=== PATIENT | male | born 1940 | race Caucasian/White ===

== ENCOUNTER → 2017-03-18 | Outpatient (CLI) | payer MEDICARE, OTHER ==
[~2017-03-18] MED LIST: /GLIP10TAB OR; /PANT40TA PO; /WARF5TA OR; ACET65TA OR; ALDA25TA2 OR; BISO10TA2 OR; BUSP10TA2 OR; CILOSTAZOL PO; CORE3.12 OR; DIET; FEBUXOSTAT PO; FLAG500T PO; FLEC50TA2 OR; FOLI1TAB OR; FOLLOW UP; GABA300T OR; HECTORAL OR; HUMUINJ IJ; HUMUINJ SQ; HUMUINJ SUBQ; HUMULIN R U SQ; INSULIN; ISOS30BRAN OR; KLOR10TA OR; LASI40TA OR; LEVEMIR INSULIN; LEVEMIR INSULIN SC; LIDOCAINE 1% MDV 20ML VIAL As Ordered ONE; LISI40TA OR; LOPERAMIDE PO; MILKSUS OR; MULTIVIT OR; NEUR600T OR; NF; NORV5TAB OR; NOVOLOG100 MG/ML SC; OXYC10TA97 OR; PERC5TAB8 OR; POTA20TA OR; RANI150C OR; RANI75TA2 OR; SING10TA31 OR; SPIR25TA2 OR; TAMB100T OR; TORS20TA2 OR; TRAM50TA2 OR; TRIC145T19 PO; ULORIC OR; XANA0.25 OR; ZOCO40TA OR; colcrys PO; dulcolax OR; levemir SC
--- NOTE | 2017-03-18 17:40 | REP ---
ULTRASOUND GUIDED RIGHT HIP ASPIRATION: The procedure was performed by RODOLFO Bedolla under the direct supervision of Dr. Coleman. The procedure along with its risks, benefits, and complications were discussed with the patient prior to the examination. Informed consent was obtained both verbally and written. The patient's was identified in the ultrasound suite and placed in a supine position. Ultrasound guidance was used to obtain and appropriate site for needle entry and this area was marked, prepped and draped in the usual sterile fashion. A procedural time-out was performed to ensure that the correct patient, site and procedure were being performed. Local infiltrative anesthesia was achieved using 1% Xylocaine. A 20-gauge spinal needle was advanced to the area of interest within the right hip. Aspirate of less than 1 mL was obtained from this procedure. A 10 mL saline lavage was attempted with no residual return of fluid. The fluid that was able to be obtained was placed in a sterile specimen cup and sent to the lab for further evaluation. Results pending. The patient tolerated the procedure well and had no immediate complications. IMPRESSION: Uncomplicated attempt at a right hip aspiration with ultrasound guidance. Reviewed by RODOLFO King 03/23/2017 11:12 AEdited and Signed by Richard Coleman MD 03/23/2017 11:41 A
[2017-03-18 18:43] LABS: SYNOVIAL FLUID COLOR RED (YELLOW)
[2017-03-18 18:44] LABS: CRYSTALS, BODY FLUID NONE SEEN (NONE SEEN); HCT SOURCE RIGHT HIP
== END ==
LOC: M RADPRO 14:35
PROVIDERS: ATTEND Orthopaedic Surgery
DX: M16.11 Unilateral primary osteoarthritis, right hip (principal); Z95.828 Presence of other vascular implants and grafts; I48.91 Unspecified atrial fibrillation; Z86.79 Personal history of other diseases of the circulatory system; Z95.0 Presence of cardiac pacemaker; Z96.651 Presence of right artificial knee joint; Z89.612 Acquired absence of left leg above knee; Z87.891 Personal history of nicotine dependence; Z88.8 Allergy status to other drugs, medicaments and biological substances; Z79.899 Other long term (current) drug therapy

== ENCOUNTER → 2017-06-12 | Outpatient (CLI) | payer MEDICARE, OTHER | LOC: M PAIN 13:15 | DX: M25.551 Pain in right hip (principal); G89.29 Other chronic pain; I10 Essential (primary) hypertension; E78.5 Hyperlipidemia, unspecified; Z79.899 Other long term (current) drug therapy; Z88.8 Allergy status to other drugs, medicaments and biological substances; Z95.0 Presence of cardiac pacemaker | CPT/HCPCS: G0463 ==

== ENCOUNTER → 2017-07-28 | Outpatient (CLI) | payer MEDICARE, OTHER | LOC: M PAIN 14:15 | DX: G89.29 Other chronic pain (principal); M25.551 Pain in right hip; I12.9 Hypertensive chronic kidney disease with stage 1 through stage 4 chronic kidney disease, or unspecified chronic kidney disease; E78.5 Hyperlipidemia, unspecified; E66.01 Morbid (severe) obesity due to excess calories; N18.9 Chronic kidney disease, unspecified; I25.10 Atherosclerotic heart disease of native coronary artery without angina pectoris; Z79.01 Long term (current) use of anticoagulants; Z79.891 Long term (current) use of opiate analgesic; Z79.4 Long term (current) use of insulin; Z96.653 Presence of artificial knee joint, bilateral; Z95.0 Presence of cardiac pacemaker; Z89.612 Acquired absence of left leg above knee; Z95.820 Peripheral vascular angioplasty status with implants and grafts; Z88.5 Allergy status to narcotic agent; Z68.41 Body mass index [BMI] 40.0-44.9, adult | CPT/HCPCS: G0463 ==

== ENCOUNTER → 2017-08-15 | Outpatient (REF) | payer MEDICARE, OTHER | LOC: SKLAB2 20:34 | DX: R19.7 Diarrhea, unspecified (principal) ==

== ENCOUNTER → 2017-08-17 | Outpatient (REF) ==
[2017-08-17 10:24] LABS: HEMATOCRIT 28.8 % (42.0-52.0); HEMOGLOBIN 8.5 g/dl (13.5-17.5); MEAN CORPUSCULAR HEMOGLOBIN 24.3 pg (27.0-33.0); MEAN CORPUSCULAR HGB CONC 29.5 g/dl (32.0-36.5); MEAN CORPUSCULAR VOLUME 82.3 fl (80.0-96.0); PLATELET COUNT, AUTOMATED 350 10^3/uL (150-450); RED CELL DISTRIBUTION WIDTH 18.2 % (11.5-14.5); WHITE BLOOD COUNT 11.4 10^3/uL (4.0-10.0)
[2017-08-17 10:59] LABS: ALBUMIN 2.5 GM/DL (3.2-5.2); ALBUMIN/GLOBULIN RATIO 0.61 (1.00-1.93); ALKALINE PHOSPHATASE 125 U/L (45-117); ALT/SGPT 23 U/L (12-78); ANION GAP 8 MEQ/L (8-16); AST/SGOT 36 U/L (7-37); BILIRUBIN,TOTAL 0.3 MG/DL (0.2-1.0); BLOOD UREA NITROGEN 70 MG/DL (7-18); CALCIUM LEVEL 8.3 MG/DL (8.8-10.2); CARBON DIOXIDE LEVEL 27 MEQ/L (21-32); CHLORIDE LEVEL 110 MEQ/L (98-107); CREATININE FOR GFR 2.55 MG/DL (0.70-1.30); GLOMERULAR FILTRATION RATE 26.4 (>42); GLUCOSE, FASTING 122 MG/DL (70-100); IRON (FE) 19 UG/DL (65-175); POTASSIUM SERUM 4.3 MEQ/L (3.5-5.1); SODIUM LEVEL 145 MEQ/L (136-145); TOTAL PROTEIN 6.6 GM/DL (6.4-8.2)
[2017-08-17 16:08] LABS: ESTIMATED AVERAGE GLUCOSE 137 MG/DL (60-110); HEMOGLOBIN A1c 6.4 %
== END ==
LOC: SKLAB2 08:37
DX: D64.9 Anemia, unspecified (principal); E11.9 Type 2 diabetes mellitus without complications; I10 Essential (primary) hypertension; L03.115 Cellulitis of right lower limb; Z79.899 Other long term (current) drug therapy

== ENCOUNTER → 2017-08-21 | Outpatient (REF) ==
[2017-08-21 08:45] LABS: ANION GAP 6 MEQ/L (8-16); BLOOD UREA NITROGEN 74 MG/DL (7-18); CALCIUM LEVEL 8.6 MG/DL (8.8-10.2); CARBON DIOXIDE LEVEL 26 MEQ/L (21-32); CHLORIDE LEVEL 106 MEQ/L (98-107); CREATININE FOR GFR 2.28 MG/DL (0.70-1.30); GLUCOSE, FASTING 56 MG/DL (70-100); NT-PRO BNP 5600 PG/ML (<125); SODIUM LEVEL 138 MEQ/L (136-145)
[2017-08-21 08:47] LABS: POTASSIUM SERUM 5.6 MEQ/L (3.5-5.1)
== END ==
LOC: SKLAB3 07:00
DX: I50.9 Heart failure, unspecified (principal)

== ENCOUNTER → 2017-08-22 | Outpatient (REF) | payer MEDICARE, OTHER ==
[2017-08-22 12:48] LABS: ANION GAP 11 MEQ/L (8-16); BLOOD UREA NITROGEN 84 MG/DL (7-18); CALCIUM LEVEL 8.5 MG/DL (8.8-10.2); CARBON DIOXIDE LEVEL 25 MEQ/L (21-32); CHLORIDE LEVEL 102 MEQ/L (98-107); CREATININE FOR GFR 2.31 MG/DL (0.70-1.30); GLOMERULAR FILTRATION RATE 29.6 (>42); GLUCOSE, FASTING 178 MG/DL (70-100); SODIUM LEVEL 138 MEQ/L (136-145)
[2017-08-22 12:51] LABS: POTASSIUM SERUM 5.6 MEQ/L (3.5-5.1)
== END ==
LOC: SKLAB3 09:59
DX: I50.9 Heart failure, unspecified (principal)
CPT/HCPCS: 80048

== ENCOUNTER → 2017-08-23 | Outpatient (REF) | payer MEDICARE, OTHER ==
[2017-08-23 11:56] LABS: ANION GAP 11 MEQ/L (8-16); BLOOD UREA NITROGEN 97 MG/DL (7-18); CALCIUM LEVEL 8.4 MG/DL (8.8-10.2); CARBON DIOXIDE LEVEL 25 MEQ/L (21-32); CHLORIDE LEVEL 101 MEQ/L (98-107); GLOMERULAR FILTRATION RATE 29.7 (>42); GLUCOSE, FASTING 178 MG/DL (70-100); SODIUM LEVEL 137 MEQ/L (136-145)
== END ==
LOC: M LAB 10:26
DX: I50.9 Heart failure, unspecified (principal)
CPT/HCPCS: 80048

== ENCOUNTER → 2017-08-24 | Outpatient (REF) ==
[2017-08-24 09:22] LABS: ALBUMIN 2.2 GM/DL (3.2-5.2); ANION GAP 9 MEQ/L (8-16); BLOOD UREA NITROGEN 98 MG/DL (7-18); CALCIUM LEVEL 8.8 MG/DL (8.8-10.2); CARBON DIOXIDE LEVEL 26 MEQ/L (21-32); CHLORIDE LEVEL 102 MEQ/L (98-107); CREATININE FOR GFR 2.11 MG/DL (0.70-1.30); GLOMERULAR FILTRATION RATE 32.8 (>42); GLUCOSE, FASTING 54 MG/DL (70-100); NT-PRO BNP 5372 PG/ML (<125); POTASSIUM SERUM 4.5 MEQ/L (3.5-5.1); SODIUM LEVEL 137 MEQ/L (136-145)
== END ==
LOC: SKLAB3 07:00
DX: N18.9 Chronic kidney disease, unspecified (principal)

== ENCOUNTER → 2017-08-25 | Outpatient (REF) ==
[2017-08-25 08:07] LABS: ANION GAP 9 MEQ/L (8-16); BLOOD UREA NITROGEN 95 MG/DL (7-18); CALCIUM LEVEL 8.7 MG/DL (8.8-10.2); CARBON DIOXIDE LEVEL 26 MEQ/L (21-32); CHLORIDE LEVEL 103 MEQ/L (98-107); CREATININE FOR GFR 2.12 MG/DL (0.70-1.30); GLOMERULAR FILTRATION RATE 32.7 (>42); GLUCOSE, FASTING 110 MG/DL (70-100); POTASSIUM SERUM 4.6 MEQ/L (3.5-5.1); SODIUM LEVEL 138 MEQ/L (136-145)
== END ==
LOC: SKLAB3 07:00
DX: E11.9 Type 2 diabetes mellitus without complications (principal)

== ENCOUNTER → 2017-08-28 | Outpatient (REF) ==
[2017-08-28 14:54] LABS: ANION GAP 9 MEQ/L (8-16); BLOOD UREA NITROGEN 117 MG/DL (7-18); CARBON DIOXIDE LEVEL 26 MEQ/L (21-32); CHLORIDE LEVEL 104 MEQ/L (98-107); CREATININE FOR GFR 2.21 MG/DL (0.70-1.30); GLOMERULAR FILTRATION RATE 31.1 (>42); GLUCOSE, FASTING 118 MG/DL (70-100); SODIUM LEVEL 139 MEQ/L (136-145)
== END ==
LOC: SKLAB3 07:08
DX: L03.90 Cellulitis, unspecified (principal)

== ENCOUNTER → 2017-08-31 | Outpatient (REF) | LOC: SKLAB3 10:58 | DX: R06.02 Shortness of breath (principal) ==

== ENCOUNTER → 2017-09-01 | Outpatient (CLI) | payer MEDICARE, OTHER | LOC: M ST 12:18 | DX: R13.12 Dysphagia, oropharyngeal phase (principal) | CPT/HCPCS: 74230 ==

== ENCOUNTER → 2017-09-04 | Outpatient (REF) ==
[2017-09-04 07:20] LABS: ALBUMIN 2.4 GM/DL (3.2-5.2); ANION GAP 7 MEQ/L (8-16); BLOOD UREA NITROGEN 113 MG/DL (7-18); CALCIUM LEVEL 8.8 MG/DL (8.8-10.2); CARBON DIOXIDE LEVEL 27 MEQ/L (21-32); CHLORIDE LEVEL 105 MEQ/L (98-107); CREATININE FOR GFR 2.25 MG/DL (0.70-1.30); GLOMERULAR FILTRATION RATE 30.5 (>42); GLUCOSE, FASTING 58 MG/DL (70-100); POTASSIUM SERUM 4.6 MEQ/L (3.5-5.1); SODIUM LEVEL 139 MEQ/L (136-145)
== END ==
LOC: SKLAB3 07:00
DX: E11.9 Type 2 diabetes mellitus without complications (principal)

== ENCOUNTER → 2017-09-07 | Outpatient (REF) ==
[2017-09-07 09:12] LABS: HEMATOCRIT 28.1 % (42.0-52.0); HEMOGLOBIN 8.3 g/dl (13.5-17.5); MEAN CORPUSCULAR HEMOGLOBIN 23.4 pg (27.0-33.0); MEAN CORPUSCULAR HGB CONC 29.5 g/dl (32.0-36.5); MEAN CORPUSCULAR VOLUME 79.4 fl (80.0-96.0); PLATELET COUNT, AUTOMATED 277 10^3/uL (150-450); RED BLOOD COUNT 3.54 10^6/uL (4.30-6.10); RED CELL DISTRIBUTION WIDTH 18.7 % (11.5-14.5)
[2017-09-07 09:38] LABS: ALBUMIN 2.4 GM/DL (3.2-5.2); ANION GAP 8 MEQ/L (8-16); BLOOD UREA NITROGEN 120 MG/DL (7-18); CALCIUM LEVEL 8.6 MG/DL (8.8-10.2); CARBON DIOXIDE LEVEL 27 MEQ/L (21-32); CHLORIDE LEVEL 103 MEQ/L (98-107); GLOMERULAR FILTRATION RATE 31.3 (>42); GLUCOSE, FASTING 117 MG/DL (70-100); PHOSPHORUS LEVEL 4.9 MG/DL (2.5-4.9); POTASSIUM SERUM 4.9 MEQ/L (3.5-5.1); SODIUM LEVEL 138 MEQ/L (136-145)
== END ==
LOC: SKLAB3 07:00
DX: E11.9 Type 2 diabetes mellitus without complications (principal); L03.90 Cellulitis, unspecified

== ENCOUNTER → 2017-09-14 | Outpatient (REF) ==
[2017-09-14 09:22] LABS: HEMATOCRIT 28.5 % (42.0-52.0); HEMOGLOBIN 8.3 g/dl (13.5-17.5); MEAN CORPUSCULAR HEMOGLOBIN 23.1 pg (27.0-33.0); MEAN CORPUSCULAR HGB CONC 29.1 g/dl (32.0-36.5); MEAN CORPUSCULAR VOLUME 79.4 fl (80.0-96.0); PLATELET COUNT, AUTOMATED 210 10^3/uL (150-450); RED BLOOD COUNT 3.59 10^6/uL (4.30-6.10); RED CELL DISTRIBUTION WIDTH 18.5 % (11.5-14.5)
[2017-09-14 09:43] LABS: ALBUMIN 2.7 GM/DL (3.2-5.2); ANION GAP 10 MEQ/L (8-16); BLOOD UREA NITROGEN 90 MG/DL (7-18); C REACTIVE PROTEIN QUANTITATIV 3.49 MG/DL (0.00-0.30); CALCIUM LEVEL 8.4 MG/DL (8.8-10.2); CARBON DIOXIDE LEVEL 30 MEQ/L (21-32); CHLORIDE LEVEL 100 MEQ/L (98-107); FERRITIN 35 NG/ML (26-388); GLUCOSE, FASTING 103 MG/DL (70-100); IRON (FE) 22 UG/DL (65-175); MAGNESIUM LEVEL 2.5 MG/DL (1.8-2.4); PHOSPHORUS LEVEL 4.9 MG/DL (2.5-4.9); POTASSIUM SERUM 4.2 MEQ/L (3.5-5.1); SODIUM LEVEL 140 MEQ/L (136-145); TOTAL IRON BINDING CAPACITY 316 UG/DL (250-450); URIC ACID 5.8 MG/DL (3.5-7.2)
[2017-09-14 09:55] LABS: ERYTHROCYTE SEDIMENTATION RATE > 140 mm/hr (0-20)
== END ==
LOC: SKLAB3 12:52
DX: N18.9 Chronic kidney disease, unspecified (principal); L03.90 Cellulitis, unspecified

== ENCOUNTER → 2017-09-24 | Outpatient (REF) ==
[2017-09-24 07:57] LABS: HEMATOCRIT 30.9 % (42.0-52.0); MEAN CORPUSCULAR HEMOGLOBIN 22.5 pg (27.0-33.0); MEAN CORPUSCULAR HGB CONC 29.1 g/dl (32.0-36.5); MEAN CORPUSCULAR VOLUME 77.3 fl (80.0-96.0); PLATELET COUNT, AUTOMATED 290 10^3/uL (150-450); RED CELL DISTRIBUTION WIDTH 17.9 % (11.5-14.5); WHITE BLOOD COUNT 5.9 10^3/uL (4.0-10.0)
[2017-09-24 08:37] LABS: ALBUMIN 2.8 GM/DL (3.2-5.2); ANION GAP 8 MEQ/L (8-16); BLOOD UREA NITROGEN 94 MG/DL (7-18); CALCIUM LEVEL 8.6 MG/DL (8.8-10.2); CARBON DIOXIDE LEVEL 35 MEQ/L (21-32); CHLORIDE LEVEL 94 MEQ/L (98-107); CREATININE FOR GFR 2.81 MG/DL (0.70-1.30); GLOMERULAR FILTRATION RATE 23.6 (>42); GLUCOSE, FASTING 89 MG/DL (70-100); PHOSPHORUS LEVEL 4.6 MG/DL (2.5-4.9); POTASSIUM SERUM 3.8 MEQ/L (3.5-5.1); SODIUM LEVEL 137 MEQ/L (136-145)
== END ==
LOC: SKLAB3 06:36
DX: E11.9 Type 2 diabetes mellitus without complications (principal); L03.90 Cellulitis, unspecified

== ENCOUNTER → 2017-09-29 | Outpatient (REF) | payer MEDICARE, OTHER | LOC: M LAB REF 10:44 | DX: E11.52 Type 2 diabetes mellitus with diabetic peripheral angiopathy with gangrene (principal); L97.514 Non-pressure chronic ulcer of other part of right foot with necrosis of bone; E11.621 Type 2 diabetes mellitus with foot ulcer ==

== ENCOUNTER 2017-10-02 15:12 | Inpatient (IN) | payer MEDICARE, OTHER ==
[2017-10-02] MEDS: PIPERACILLIN/TAZOBACTAM SOD 3.375 GM in D5W MINI-BAG PLUS 50 ML IV (17:28)
[2017-10-02 17:54] LABS: CK-MB VALUE MASS < 1.0 NG/ML (<3.6); CPK CREATINE PHOSPHOKINASE 19 U/L (39-308); MB/CK RELATIVE INDEX 5.26 (< OR =4); TROPONIN I < 0.02 NG/ML (< 0.10)
[2017-10-02] MEDS: SODIUM CHLORIDE 0.9% INJ 10 ML SYR IV (18:00)
[2017-10-02] MEDS ORDERED: DEXTROSE 50% 50 ML SYRINGE IV (18:15)
[2017-10-02] MEDS ORDERED: GLUCAGON FOR INJ 1 MG VIAL (J1610) SC (18:15)
[2017-10-02] MEDS ORDERED: GLUCOSE 4 GM CHEW TABLET PO (18:15)
[2017-10-02 18:22] LABS: ERYTHROCYTE SEDIMENTATION RATE 65 mm/hr (0-20)
[2017-10-02] MEDS: VANCOMYCIN HCL 1,000 MG, VIAL MATE ADAPTER 1 EACH in D5W 250 ML IV (18:34)
[2017-10-02] MEDS ORDERED: traMADol 50 MG TAB PO (19:00)
[2017-10-02] MEDS ORDERED: MECLIZINE 25 MG TABLET PO (19:00)
[2017-10-02] MEDS: SYMBICORT 160/4.5MCG INHALER 6GM INH (20:00)
[2017-10-02] MEDS: MAGNESIUM CHLORIDE 64 MG TABCR (SLO MAG) PO (21:00)
[2017-10-02] MEDS: LEVEMIR (INSULIN DETEMIR) 1 UNITS/0.01ML SC (21:00)
[2017-10-02] MEDS: HumaLOG INSULIN (NovoLOG) PER UNIT SC (21:00)
[2017-10-02 21:29] LABS: BEDSIDE GLUCOSE 98 MG/DL (83-110)
[2017-10-02] MEDS: DABIGATRAN ETEXILATE 75 MG CAP (PRADAXA) PO (21:45)
[2017-10-02] MEDS: GABAPENTIN 300 MG CAP PO (21:46)
[2017-10-02] MEDS: traZODone 50 MG TAB PO (21:46)
[2017-10-02] MEDS: MONTELUKAST 10 MG TAB PO (21:46)
[2017-10-02] MEDS: SIMVASTATIN 40 MG TAB PO (21:46)
[2017-10-02] MEDS: PANTOPRAZOLE 40MG TAB (PROTONIX) PO (21:46)
[2017-10-02] MEDS: METOPROLOL TART 50 MG TAB PO (21:46)
[2017-10-02] MEDS: CEFTAROLINE FOSAMIL 300 MG in D5W 50 ML IV (23:00)
[2017-10-02] MEDS: ALBUTEROL SULFATE 2.5 MG/0.5 ML INH NEB SOLN INH (23:30)
[2017-10-02] MEDS: BUDESONIDE 0.5 MG/2 ML INHALATION SUSPENSION INH (23:30)
[2017-10-03] MEDS: ONDANSETRON 4MG/2ML VIAL (J2405) IV (03:45)
[2017-10-03] MEDS: SODIUM CHLORIDE 0.9% INJ 10 ML SYR IV ×3 (03:46→18:31)
[2017-10-03 05:32] LABS: HEMATOCRIT 32.1 % (42.0-52.0); HEMOGLOBIN 9.5 g/dl (13.5-17.5); MEAN CORPUSCULAR HEMOGLOBIN 22.5 pg (27.0-33.0); MEAN CORPUSCULAR HGB CONC 29.6 g/dl (32.0-36.5); MEAN CORPUSCULAR VOLUME 76.1 fl (80.0-96.0); PLATELET COUNT, AUTOMATED 274 10^3/uL (150-450); RED BLOOD COUNT 4.22 10^6/uL (4.30-6.10); RED CELL DISTRIBUTION WIDTH 18.6 % (11.5-14.5); WHITE BLOOD COUNT 15.4 10^3/uL (4.0-10.0)
[2017-10-03 05:32] LABS: BEDSIDE GLUCOSE 82 MG/DL (83-110)
[2017-10-03 05:52] LABS: ERYTHROCYTE SEDIMENTATION RATE 87 mm/hr (0-20)
[2017-10-03 06:05] LABS: ALBUMIN 2.5 GM/DL (3.2-5.2); ALBUMIN/GLOBULIN RATIO 0.58 (1.00-1.93); ALKALINE PHOSPHATASE 83 U/L (45-117); ALT/SGPT 12 U/L (12-78); ANION GAP 7 MEQ/L (8-16); AST/SGOT 19 U/L (7-37); BILIRUBIN,TOTAL 0.3 MG/DL (0.2-1.0); BLOOD UREA NITROGEN 133 MG/DL (7-18); CALCIUM LEVEL 8.5 MG/DL (8.8-10.2); CARBON DIOXIDE LEVEL 31 MEQ/L (21-32); CHLORIDE LEVEL 97 MEQ/L (98-107); CREATININE FOR GFR 2.72 MG/DL (0.70-1.30); GLOMERULAR FILTRATION RATE 24.5 (>42); GLUCOSE, FASTING 86 MG/DL (70-100); MAGNESIUM LEVEL 2.2 MG/DL (1.8-2.4); POTASSIUM SERUM 3.8 MEQ/L (3.5-5.1); SODIUM LEVEL 135 MEQ/L (136-145); TOTAL PROTEIN 6.8 GM/DL (6.4-8.2)
[2017-10-03] MEDS: BUDESONIDE 0.5 MG/2 ML INHALATION SUSPENSION INH ×2 (06:58→20:00)
[2017-10-03] MEDS: ALBUTEROL SULFATE 2.5 MG/0.5 ML INH NEB SOLN INH (06:58)
[2017-10-03] MEDS: SYMBICORT 160/4.5MCG INHALER 6GM INH ×2 (06:59→20:00)
[2017-10-03] MEDS: HumaLOG INSULIN (NovoLOG) PER UNIT SC ×4 (07:23→21:41)
[2017-10-03] MEDS: LevoFLOXacin IV 250 MG in APPROPRIATE DILUENT 1 EA IV (09:00)
[2017-10-03] MEDS: SANTYL OINT 30GM TOP (09:00)
[2017-10-03] MEDS: MAGNESIUM CHLORIDE 64 MG TABCR (SLO MAG) PO ×2 (09:00→21:00)
[2017-10-03] MEDS: CLOPIDOGREL 75 MG TAB PO (09:11)
[2017-10-03] MEDS: GABAPENTIN 300 MG CAP PO ×2 (09:11→21:40)
[2017-10-03] MEDS: FINASTERIDE 5 MG TAB PO (09:12)
[2017-10-03] MEDS: DABIGATRAN ETEXILATE 75 MG CAP (PRADAXA) PO ×2 (09:12→21:40)
[2017-10-03] MEDS: SENOKOT S TAB PO (09:12)
[2017-10-03] MEDS: CALCITRIOL 0.25 MCG CAP (S0169) PO (09:12)
[2017-10-03] MEDS: DULoxetine 20 MG CAP (CYMBALTA) PO (09:12)
[2017-10-03] MEDS: MULTIVITAMINS/MINERALS THERAP 1 TAB PO (09:12)
[2017-10-03] MEDS: PANTOPRAZOLE 40MG TAB (PROTONIX) PO ×2 (09:12→21:39)
[2017-10-03] MEDS: METOPROLOL TART 50 MG TAB PO ×2 (09:12→21:40)
[2017-10-03] MEDS: FEBUXOSTAT 40 MG TABLET (ULORIC) PO (11:37)
[2017-10-03] MEDS: CEFTAROLINE FOSAMIL 300 MG in D5W 50 ML IV (11:37)
[2017-10-03 11:50] LABS: BEDSIDE GLUCOSE 117 MG/DL (83-110)
[2017-10-03 16:45] LABS: BEDSIDE GLUCOSE 184 MG/DL (83-110)
[2017-10-03 21:33] LABS: BEDSIDE GLUCOSE 179 MG/DL (83-110)
[2017-10-03] MEDS: MONTELUKAST 10 MG TAB PO (21:39)
[2017-10-03] MEDS: SIMVASTATIN 40 MG TAB PO (21:39)
[2017-10-03] MEDS: traZODone 50 MG TAB PO (21:40)
[2017-10-03] MEDS: LEVEMIR (INSULIN DETEMIR) 1 UNITS/0.01ML SC (21:41)
[2017-10-04] MEDS: CEFTAROLINE FOSAMIL 300 MG in D5W 50 ML IV ×3 (00:03→23:39)
[2017-10-04] MEDS: ONDANSETRON 4MG/2ML VIAL (J2405) IV ×3 (00:55→20:46)
[2017-10-04] MEDS: ALBUTEROL SULFATE 2.5 MG/0.5 ML INH NEB SOLN INH ×2 (01:28→07:56)
[2017-10-04] MEDS: SODIUM CHLORIDE 0.9% INJ 10 ML SYR IV ×2 (05:57→17:44)
[2017-10-04 06:13] LABS: HEMATOCRIT 32.9 % (42.0-52.0); HEMOGLOBIN 9.7 g/dl (13.5-17.5); MEAN CORPUSCULAR HEMOGLOBIN 22.6 pg (27.0-33.0); MEAN CORPUSCULAR HGB CONC 29.5 g/dl (32.0-36.5); MEAN CORPUSCULAR VOLUME 76.7 fl (80.0-96.0); PLATELET COUNT, AUTOMATED 276 10^3/uL (150-450); RED BLOOD COUNT 4.29 10^6/uL (4.30-6.10); RED CELL DISTRIBUTION WIDTH 19.3 % (11.5-14.5); WHITE BLOOD COUNT 14.8 10^3/uL (4.0-10.0)
[2017-10-04 06:56] LABS: ALBUMIN 2.5 GM/DL (3.2-5.2); ALBUMIN/GLOBULIN RATIO 0.54 (1.00-1.93); ALKALINE PHOSPHATASE 85 U/L (45-117); ALT/SGPT 10 U/L (12-78); ANION GAP 8 MEQ/L (8-16); AST/SGOT 15 U/L (7-37); BILIRUBIN,TOTAL 0.4 MG/DL (0.2-1.0); BLOOD UREA NITROGEN 137 MG/DL (7-18); CALCIUM LEVEL 8.9 MG/DL (8.8-10.2); CARBON DIOXIDE LEVEL 31 MEQ/L (21-32); CHLORIDE LEVEL 97 MEQ/L (98-107); GLOMERULAR FILTRATION RATE 21.9 (>42); GLUCOSE, FASTING 121 MG/DL (70-100); MAGNESIUM LEVEL 2.5 MG/DL (1.8-2.4); POTASSIUM SERUM 3.9 MEQ/L (3.5-5.1); SODIUM LEVEL 136 MEQ/L (136-145); TOTAL PROTEIN 7.1 GM/DL (6.4-8.2)
[2017-10-04 07:16] LABS: ERYTHROCYTE SEDIMENTATION RATE 84 mm/hr (0-20)
[2017-10-04] MEDS: HumaLOG INSULIN (NovoLOG) PER UNIT SC ×4 (07:30→20:45)
[2017-10-04] MEDS: BUDESONIDE 0.5 MG/2 ML INHALATION SUSPENSION INH ×2 (07:56→20:34)
[2017-10-04] MEDS: SYMBICORT 160/4.5MCG INHALER 6GM INH ×2 (08:00→20:00)
[2017-10-04] MEDS: NS 1,000 ML IV (08:37)
[2017-10-04] MEDS: CLOPIDOGREL 75 MG TAB PO (09:16)
[2017-10-04] MEDS: DULoxetine 20 MG CAP (CYMBALTA) PO (09:16)
[2017-10-04] MEDS: FINASTERIDE 5 MG TAB PO (09:16)
[2017-10-04] MEDS: METOPROLOL TART 50 MG TAB PO ×2 (09:16→20:46)
[2017-10-04] MEDS: DABIGATRAN ETEXILATE 75 MG CAP (PRADAXA) PO (09:16)
[2017-10-04] MEDS: GABAPENTIN 300 MG CAP PO ×2 (09:16→20:46)
[2017-10-04] MEDS: PANTOPRAZOLE 40MG TAB (PROTONIX) PO ×2 (09:17→20:47)
[2017-10-04] MEDS: FEBUXOSTAT 40 MG TABLET (ULORIC) PO (09:17)
[2017-10-04] MEDS: MULTIVITAMINS/MINERALS THERAP 1 TAB PO (09:17)
[2017-10-04] MEDS: MAGNESIUM CHLORIDE 64 MG TABCR (SLO MAG) PO (09:17)
[2017-10-04] MEDS: SENOKOT S TAB PO (09:17)
[2017-10-04] MEDS: CALCITRIOL 0.25 MCG CAP (S0169) PO (09:17)
[2017-10-04] MEDS: SANTYL OINT 30GM TOP (09:33)
[2017-10-04] MEDS: ACETAMINOPHEN TAB 650MG DOSE (2X325MG) PO ×2 (09:43→21:05)
[2017-10-04 11:56] LABS: BEDSIDE GLUCOSE 159 MG/DL (83-110)
[2017-10-04 13:57] LABS: OSMOLALITY URINE 402 MOSM/KG (500-800)
[2017-10-04 14:04] LABS: CHLORIDE,RANDOM URINE < 10 MEQ/L; CREATININE,RANDOM URINE 80.5 MG/DL; SODIUM,RANDOM URINE 22 MEQ/L; TOTAL PROTEIN,RANDOM URINE 76.5 MG/DL (0.0-12.0)
[2017-10-04 16:47] LABS: PARTIAL THROMBOPLASTIN TIME 53.6 SECONDS (26.8-37.9)
[2017-10-04] MEDS: HEPARIN DRIP 25,000 UNITS in APPROPRIATE DILUENT 1 EA IV (16:57)
[2017-10-04 20:39] LABS: BEDSIDE GLUCOSE 151 MG/DL (83-110)
[2017-10-04] MEDS: LEVEMIR (INSULIN DETEMIR) 1 UNITS/0.01ML SC (20:45)
[2017-10-04] MEDS: MONTELUKAST 10 MG TAB PO (20:47)
[2017-10-04] MEDS: traZODone 50 MG TAB PO (20:47)
[2017-10-04] MEDS: SIMVASTATIN 40 MG TAB PO (20:47)
[2017-10-05 01:00] LABS: PARTIAL THROMBOPLASTIN TIME 145.3 SECONDS (26.8-37.9)
[2017-10-05] MEDS: HEPARIN DRIP 25,000 UNITS in APPROPRIATE DILUENT 1 EA IV ×2 (02:06→11:59)
[2017-10-05] MEDS: SODIUM CHLORIDE 0.9% INJ 10 ML SYR IV ×2 (04:45→17:54)
[2017-10-05] MEDS: ONDANSETRON 4MG/2ML VIAL (J2405) IV ×2 (05:00→20:59)
[2017-10-05 05:01] LABS: HEMATOCRIT 31.9 % (42.0-52.0); HEMOGLOBIN 9.2 g/dl (13.5-17.5); MEAN CORPUSCULAR HEMOGLOBIN 22.3 pg (27.0-33.0); MEAN CORPUSCULAR HGB CONC 28.8 g/dl (32.0-36.5); MEAN CORPUSCULAR VOLUME 77.2 fl (80.0-96.0); PLATELET COUNT, AUTOMATED 233 10^3/uL (150-450); RED BLOOD COUNT 4.13 10^6/uL (4.30-6.10); RED CELL DISTRIBUTION WIDTH 19.8 % (11.5-14.5); WHITE BLOOD COUNT 12.8 10^3/uL (4.0-10.0)
[2017-10-05 05:24] LABS: ALBUMIN 2.4 GM/DL (3.2-5.2); ALBUMIN/GLOBULIN RATIO 0.48 (1.00-1.93); ALKALINE PHOSPHATASE 77 U/L (45-117); ALT/SGPT 10 U/L (12-78); ANION GAP 6 MEQ/L (8-16); AST/SGOT 12 U/L (7-37); BILIRUBIN,TOTAL 0.3 MG/DL (0.2-1.0); BLOOD UREA NITROGEN 124 MG/DL (7-18); CALCIUM LEVEL 9.4 MG/DL (8.8-10.2); CARBON DIOXIDE LEVEL 31 MEQ/L (21-32); CHLORIDE LEVEL 100 MEQ/L (98-107); CREATININE FOR GFR 2.94 MG/DL (0.70-1.30); GLOMERULAR FILTRATION RATE 22.4 (>42); GLUCOSE, FASTING 101 MG/DL (70-100); MAGNESIUM LEVEL 2.4 MG/DL (1.8-2.4); POTASSIUM SERUM 3.9 MEQ/L (3.5-5.1); SODIUM LEVEL 137 MEQ/L (136-145); TOTAL PROTEIN 7.4 GM/DL (6.4-8.2)
[2017-10-05 05:40] LABS: ERYTHROCYTE SEDIMENTATION RATE 91 mm/hr (0-20)
[2017-10-05 08:20] LABS: PARTIAL THROMBOPLASTIN TIME 104.6 SECONDS (26.8-37.9)
[2017-10-05] MEDS: BUDESONIDE 0.5 MG/2 ML INHALATION SUSPENSION INH ×2 (08:32→19:55)
[2017-10-05] MEDS: SYMBICORT 160/4.5MCG INHALER 6GM INH ×2 (08:32→19:56)
[2017-10-05] MEDS ORDERED: LIDOCAINE 2% MDV 20 ML VIAL As Ordered (10:12)
[2017-10-05] MEDS ORDERED: HEPARIN 1,000 UNITS/ML 10ML VIAL (FOR RADIOLOGY& DIALYSIS ONLY) As Ordered (10:12)
[2017-10-05] MEDS: NS 1,000 ML IV ×2 (11:44→20:59)
[2017-10-05] MEDS: HumaLOG INSULIN (NovoLOG) PER UNIT SC ×4 (11:45→21:00)
[2017-10-05] MEDS: FEBUXOSTAT 40 MG TABLET (ULORIC) PO (11:46)
[2017-10-05] MEDS: FINASTERIDE 5 MG TAB PO (11:46)
[2017-10-05] MEDS: CALCITRIOL 0.25 MCG CAP (S0169) PO (11:46)
[2017-10-05] MEDS: SENOKOT S TAB PO (11:46)
[2017-10-05] MEDS: MULTIVITAMINS/MINERALS THERAP 1 TAB PO (11:46)
[2017-10-05] MEDS: DULoxetine 20 MG CAP (CYMBALTA) PO (11:47)
[2017-10-05] MEDS: METOPROLOL TART 50 MG TAB PO ×2 (11:47→21:00)
[2017-10-05] MEDS: PANTOPRAZOLE 40MG TAB (PROTONIX) PO ×2 (11:47→21:00)
[2017-10-05] MEDS: CLOPIDOGREL 75 MG TAB PO (11:47)
[2017-10-05] MEDS: CEFTAROLINE FOSAMIL 300 MG in D5W 50 ML IV (11:48)
[2017-10-05] MEDS: SANTYL OINT 30GM TOP (11:48)
[2017-10-05] MEDS: GABAPENTIN 300 MG CAP PO (11:56)
[2017-10-05 14:46] LABS: PARTIAL THROMBOPLASTIN TIME 87.5 SECONDS (26.8-37.9)
[2017-10-05 17:29] LABS: BEDSIDE GLUCOSE 124 MG/DL (83-110)
[2017-10-05] MEDS: SIMVASTATIN 40 MG TAB PO (20:59)
[2017-10-05] MEDS: traZODone 50 MG TAB PO (20:59)
[2017-10-05 21:00] LABS: BEDSIDE GLUCOSE 131 MG/DL (83-110)
[2017-10-05] MEDS: MONTELUKAST 10 MG TAB PO (21:00)
[2017-10-05] MEDS: LEVEMIR (INSULIN DETEMIR) 1 UNITS/0.01ML SC (21:01)
[2017-10-05] MEDS: ACETAMINOPHEN TAB 650MG DOSE (2X325MG) PO (21:06)
[2017-10-05] MEDS: PIPERACILLIN/TAZOBACTAM SOD 2.25 GM in D5W MINI-BAG PLUS 50 ML IV (21:07)
[2017-10-05 22:57] LABS: ANION GAP 9 MEQ/L (8-16); BLOOD UREA NITROGEN 66 MG/DL (7-18); CALCIUM LEVEL 8.6 MG/DL (8.8-10.2); CARBON DIOXIDE LEVEL 29 MEQ/L (21-32); CHLORIDE LEVEL 102 MEQ/L (98-107); CREATININE FOR GFR 2.26 MG/DL (0.70-1.30); GLOMERULAR FILTRATION RATE 30.3 (>42); GLUCOSE, FASTING 131 MG/DL (70-100); MAGNESIUM LEVEL 2.3 MG/DL (1.8-2.4); POTASSIUM SERUM 4.1 MEQ/L (3.5-5.1); SODIUM LEVEL 140 MEQ/L (136-145)
[2017-10-06] MEDS: HALOPERIDOL 5 MG/ML VIAL (J1630) IV (02:29)
[2017-10-06] MEDS: PIPERACILLIN/TAZOBACTAM SOD 2.25 GM in D5W MINI-BAG PLUS 50 ML IV ×3 (05:01→21:37)
[2017-10-06] MEDS: SODIUM CHLORIDE 0.9% INJ 10 ML SYR IV ×2 (05:32→19:02)
[2017-10-06 05:46] LABS: HEMOGLOBIN 8.2 g/dl (13.5-17.5); MEAN CORPUSCULAR HGB CONC 29.3 g/dl (32.0-36.5); MEAN CORPUSCULAR VOLUME 78.7 fl (80.0-96.0); PLATELET COUNT, AUTOMATED 188 10^3/uL (150-450); RED BLOOD COUNT 3.56 10^6/uL (4.30-6.10); RED CELL DISTRIBUTION WIDTH 19.9 % (11.5-14.5); WHITE BLOOD COUNT 10.9 10^3/uL (4.0-10.0)
[2017-10-06 06:03] LABS: PARTIAL THROMBOPLASTIN TIME 92.3 SECONDS (26.8-37.9)
[2017-10-06 06:09] LABS: ERYTHROCYTE SEDIMENTATION RATE 51 mm/hr (0-20)
[2017-10-06 06:52] LABS: ALBUMIN 2.2 GM/DL (3.2-5.2); ALBUMIN/GLOBULIN RATIO 0.58 (1.00-1.93); ALKALINE PHOSPHATASE 70 U/L (45-117); ALT/SGPT 9 U/L (12-78); ANION GAP 8 MEQ/L (8-16); AST/SGOT 16 U/L (7-37); BILIRUBIN,TOTAL 0.3 MG/DL (0.2-1.0); BLOOD UREA NITROGEN 69 MG/DL (7-18); C REACTIVE PROTEIN QUANTITATIV 6.71 MG/DL (0.00-0.30); CALCIUM LEVEL 8.2 MG/DL (8.8-10.2); CARBON DIOXIDE LEVEL 28 MEQ/L (21-32); CHLORIDE LEVEL 106 MEQ/L (98-107); CREATININE FOR GFR 2.36 MG/DL (0.70-1.30); GLOMERULAR FILTRATION RATE 28.9 (>42); GLUCOSE, FASTING 69 MG/DL (70-100); MAGNESIUM LEVEL 2.3 MG/DL (1.8-2.4); POTASSIUM SERUM 3.7 MEQ/L (3.5-5.1); SODIUM LEVEL 142 MEQ/L (136-145)
[2017-10-06] MEDS: BUDESONIDE 0.5 MG/2 ML INHALATION SUSPENSION INH ×2 (07:26→21:19)
[2017-10-06] MEDS: SYMBICORT 160/4.5MCG INHALER 6GM INH ×2 (07:27→21:20)
[2017-10-06] MEDS: METOPROLOL TART 50 MG TAB PO ×2 (07:34→21:41)
[2017-10-06] MEDS: CALCITRIOL 0.25 MCG CAP (S0169) PO (07:34)
[2017-10-06] MEDS: FEBUXOSTAT 40 MG TABLET (ULORIC) PO (07:34)
[2017-10-06] MEDS: PANTOPRAZOLE 40MG TAB (PROTONIX) PO ×3 (07:34→21:41)
[2017-10-06] MEDS: SENOKOT S TAB PO (07:34)
[2017-10-06] MEDS: HumaLOG INSULIN (NovoLOG) PER UNIT SC ×4 (07:35→21:00)
[2017-10-06] MEDS: DULoxetine 20 MG CAP (CYMBALTA) PO (07:35)
[2017-10-06] MEDS: MULTIVITAMINS/MINERALS THERAP 1 TAB PO (07:35)
[2017-10-06] MEDS: FINASTERIDE 5 MG TAB PO (07:35)
[2017-10-06] MEDS: CLOPIDOGREL 75 MG TAB PO (07:35)
[2017-10-06] MEDS: NS 1,000 ML IV ×3 (07:36→23:37)
[2017-10-06] MEDS: SANTYL OINT 30GM TOP (07:36)
[2017-10-06] MEDS: LORazepam 2 MG/ML VIAL (J2060) IV ×3 (08:47→19:46)
[2017-10-06 11:36] LABS: CHOLESTEROL LEVEL 79 MG/DL (<200); CHOLESTEROL RISK RATIO 2.468 (<5); HDL CHOLESTEROL 32 MG/DL (>40); LDL CHOLESTEROL 20.6 MG/DL (<100); NON-HDL-C 47 MG/DL; TRIGLYCERIDES LEVEL 132 MG/DL (<150)
[2017-10-06 11:55] LABS: ESTIMATED AVERAGE GLUCOSE 120 MG/DL (60-110); HEMOGLOBIN A1c 5.8 %
[2017-10-06 12:18] LABS: BEDSIDE GLUCOSE 63 MG/DL (83-110)
[2017-10-06] MEDS: HEPARIN DRIP 25,000 UNITS in APPROPRIATE DILUENT 1 EA IV (13:50)
[2017-10-06 17:29] LABS: BEDSIDE GLUCOSE 84 MG/DL (83-110)
[2017-10-06] MEDS: SIMVASTATIN 40 MG TAB PO ×2 (21:00→21:41)
[2017-10-06] MEDS: LEVEMIR (INSULIN DETEMIR) 1 UNITS/0.01ML SC (21:00)
[2017-10-06] MEDS: traZODone 50 MG TAB PO ×2 (21:00→21:41)
[2017-10-06] MEDS: MONTELUKAST 10 MG TAB PO ×2 (21:00→21:41)
[2017-10-06] MEDS ORDERED: LEVEMIR (INSULIN DETEMIR) 1 UNITS/0.01ML SC (21:00)
[2017-10-06 21:09] LABS: BEDSIDE GLUCOSE 123 MG/DL (83-110)
[2017-10-07] MEDS: PIPERACILLIN/TAZOBACTAM SOD 2.25 GM in D5W MINI-BAG PLUS 50 ML IV ×3 (05:20→20:30)
[2017-10-07] MEDS: SODIUM CHLORIDE 0.9% INJ 10 ML SYR IV ×2 (05:45→17:59)
[2017-10-07 05:47] LABS: HEMATOCRIT 30.1 % (42.0-52.0); HEMOGLOBIN 8.4 g/dl (13.5-17.5); MEAN CORPUSCULAR HEMOGLOBIN 22.4 pg (27.0-33.0); MEAN CORPUSCULAR HGB CONC 27.9 g/dl (32.0-36.5); MEAN CORPUSCULAR VOLUME 80.3 fl (80.0-96.0); PLATELET COUNT, AUTOMATED 197 10^3/uL (150-450); RED BLOOD COUNT 3.75 10^6/uL (4.30-6.10); RED CELL DISTRIBUTION WIDTH 20.2 % (11.5-14.5); WHITE BLOOD COUNT 13.1 10^3/uL (4.0-10.0)
[2017-10-07 06:02] LABS: PARTIAL THROMBOPLASTIN TIME 71.5 SECONDS (26.8-37.9)
[2017-10-07 06:19] LABS: ALBUMIN 2.3 GM/DL (3.2-5.2); ALBUMIN/GLOBULIN RATIO 0.58 (1.00-1.93); ALKALINE PHOSPHATASE 74 U/L (45-117); ALT/SGPT 10 U/L (12-78); ANION GAP 12 MEQ/L (8-16); AST/SGOT 15 U/L (7-37); BILIRUBIN,TOTAL 0.4 MG/DL (0.2-1.0); BLOOD UREA NITROGEN 62 MG/DL (7-18); C REACTIVE PROTEIN QUANTITATIV 8.84 MG/DL (0.00-0.30); CALCIUM LEVEL 8.2 MG/DL (8.8-10.2); CARBON DIOXIDE LEVEL 24 MEQ/L (21-32); CHLORIDE LEVEL 108 MEQ/L (98-107); CREATININE FOR GFR 2.54 MG/DL (0.70-1.30); FERRITIN 501 NG/ML (26-388); GLOMERULAR FILTRATION RATE 26.5 (>42); GLUCOSE, FASTING 110 MG/DL (70-100); IRON (FE) 32 UG/DL (65-175); PERCENT SATURATION 13.9 % (19.7-50.0); POTASSIUM SERUM 3.9 MEQ/L (3.5-5.1); SODIUM LEVEL 144 MEQ/L (136-145); TOTAL IRON BINDING CAPACITY 231 UG/DL (250-450); TOTAL PROTEIN 6.3 GM/DL (6.4-8.2)
[2017-10-07 07:02] LABS: ERYTHROCYTE SEDIMENTATION RATE 85 mm/hr (0-20)
[2017-10-07] MEDS: HumaLOG INSULIN (NovoLOG) PER UNIT SC ×4 (07:30→21:00)
[2017-10-07] MEDS: BUDESONIDE 0.5 MG/2 ML INHALATION SUSPENSION INH ×2 (07:34→20:32)
[2017-10-07] MEDS: SYMBICORT 160/4.5MCG INHALER 6GM INH ×2 (07:35→20:00)
[2017-10-07 08:10] LABS: HEPATITIS B CORE ANTIBODY IGG Negative (Negative)
[2017-10-07] MEDS: FINASTERIDE 5 MG TAB PO (08:27)
[2017-10-07] MEDS: SENOKOT S TAB PO (08:27)
[2017-10-07] MEDS: DULoxetine 20 MG CAP (CYMBALTA) PO (08:27)
[2017-10-07] MEDS: PANTOPRAZOLE 40MG TAB (PROTONIX) PO ×2 (08:27→21:00)
[2017-10-07] MEDS: METOPROLOL TART 50 MG TAB PO (08:27)
[2017-10-07] MEDS: CALCITRIOL 0.25 MCG CAP (S0169) PO (08:27)
[2017-10-07] MEDS: CLOPIDOGREL 75 MG TAB PO (08:27)
[2017-10-07] MEDS: FEBUXOSTAT 40 MG TABLET (ULORIC) PO (08:28)
[2017-10-07] MEDS: MULTIVITAMINS/MINERALS THERAP 1 TAB PO (08:28)
[2017-10-07] MEDS: LORazepam 2 MG/ML VIAL (J2060) IV ×4 (08:35→20:28)
[2017-10-07 08:46] LABS: HEPATITIS B SURFACE ANTIBODY NEGATIVE (POSITIVE)
[2017-10-07 08:48] LABS: HEPATITIS B SURFACE ANTIGEN NEGATIVE (NEGATIVE)
[2017-10-07 09:10] LABS: HEPATITIS B CORE ANTIBODY IGM NEGATIVE (NEGATIVE)
[2017-10-07] MEDS ORDERED: LORazepam 2 MG/ML VIAL (J2060) As Ordered (10:31)
[2017-10-07] MEDS: HEPARIN 1,000 UNITS/ML 10ML VIAL (FOR RADIOLOGY& DIALYSIS ONLY) XX (11:15)
[2017-10-07 12:38] LABS: BEDSIDE GLUCOSE 126 MG/DL (83-110)
[2017-10-07] MEDS: HEPARIN DRIP 25,000 UNITS in APPROPRIATE DILUENT 1 EA IV (13:26)
[2017-10-07] MEDS: LABETALOL HCL 100 MG/20 ML VIAL IV ×2 (13:27→17:58)
[2017-10-07] MEDS: SANTYL OINT 30GM TOP (13:28)
[2017-10-07 17:01] LABS: BEDSIDE GLUCOSE 111 MG/DL (83-110)
[2017-10-07] MEDS ORDERED: MIDAZOLAM INJ 2 MG/2 ML VIAL (J2250) As Ordered (18:13)
[2017-10-07] MEDS: ALBUTEROL SULFATE 2.5 MG/0.5 ML INH NEB SOLN INH (20:32)
[2017-10-07] MEDS: LEVEMIR (INSULIN DETEMIR) 1 UNITS/0.01ML SC (21:00)
[2017-10-07] MEDS: traZODone 50 MG TAB PO (21:00)
[2017-10-07] MEDS: SIMVASTATIN 40 MG TAB PO (21:00)
[2017-10-07] MEDS: MONTELUKAST 10 MG TAB PO (21:00)
[2017-10-07 21:38] LABS: BEDSIDE GLUCOSE 142 MG/DL (83-110)
[2017-10-08] MEDS: NS 1,000 ML IV (00:13)
[2017-10-08] MEDS: LORazepam 2 MG/ML VIAL (J2060) IV ×2 (00:18→23:33)
[2017-10-08] MEDS: LABETALOL HCL 100 MG/20 ML VIAL IV ×5 (00:27→23:33)
[2017-10-08] MEDS: PIPERACILLIN/TAZOBACTAM SOD 2.25 GM in D5W MINI-BAG PLUS 50 ML IV ×2 (04:36→12:28)
[2017-10-08] MEDS: SODIUM CHLORIDE 0.9% INJ 10 ML SYR IV ×2 (05:21→18:00)
[2017-10-08 06:35] LABS: HEMATOCRIT 30.1 % (42.0-52.0); HEMOGLOBIN 8.7 g/dl (13.5-17.5); MEAN CORPUSCULAR HEMOGLOBIN 23.1 pg (27.0-33.0); MEAN CORPUSCULAR HGB CONC 28.9 g/dl (32.0-36.5); MEAN CORPUSCULAR VOLUME 79.8 fl (80.0-96.0); PLATELET COUNT, AUTOMATED 188 10^3/uL (150-450); RED BLOOD COUNT 3.77 10^6/uL (4.30-6.10); RED CELL DISTRIBUTION WIDTH 20.4 % (11.5-14.5); WHITE BLOOD COUNT 13.5 10^3/uL (4.0-10.0)
[2017-10-08 06:58] LABS: ERYTHROCYTE SEDIMENTATION RATE 85 mm/hr (0-20)
[2017-10-08 07:01] LABS: ANION GAP 9 MEQ/L (8-16); BLOOD UREA NITROGEN 34 MG/DL (7-18); CARBON DIOXIDE LEVEL 27 MEQ/L (21-32); CHLORIDE LEVEL 107 MEQ/L (98-107); CREATININE FOR GFR 2.03 MG/DL (0.70-1.30); GLOMERULAR FILTRATION RATE 34.3 (>42); GLUCOSE, FASTING 170 MG/DL (70-100); MAGNESIUM LEVEL 2.2 MG/DL (1.8-2.4); POTASSIUM SERUM 3.6 MEQ/L (3.5-5.1); SODIUM LEVEL 143 MEQ/L (136-145)
[2017-10-08 07:03] LABS: PARTIAL THROMBOPLASTIN TIME 239.4 SECONDS (26.8-37.9)
[2017-10-08 07:55] LABS: PARTIAL THROMBOPLASTIN TIME 56.7 SECONDS (26.8-37.9)
[2017-10-08] MEDS: SYMBICORT 160/4.5MCG INHALER 6GM INH ×2 (08:00→20:00)
[2017-10-08] MEDS: BUDESONIDE 0.5 MG/2 ML INHALATION SUSPENSION INH ×2 (08:00→20:00)
[2017-10-08] MEDS: HEPARIN SOD (PORCINE) 5000 UNITS/ML VIAL IV (08:39)
[2017-10-08 08:40] LABS: BEDSIDE GLUCOSE 125 MG/DL (83-110)
[2017-10-08] MEDS: FINASTERIDE 5 MG TAB PO (09:00)
[2017-10-08] MEDS: PANTOPRAZOLE 40MG TAB (PROTONIX) PO (09:00)
[2017-10-08] MEDS: SANTYL OINT 30GM TOP (09:00)
[2017-10-08] MEDS: CALCITRIOL 0.25 MCG CAP (S0169) PO (09:00)
[2017-10-08] MEDS: DULoxetine 20 MG CAP (CYMBALTA) PO (09:00)
[2017-10-08] MEDS: CLOPIDOGREL 75 MG TAB PO (09:00)
[2017-10-08] MEDS: SENOKOT S TAB PO (09:00)
[2017-10-08] MEDS: FEBUXOSTAT 40 MG TABLET (ULORIC) PO (09:00)
[2017-10-08] MEDS: MULTIVITAMINS/MINERALS THERAP 1 TAB PO (09:00)
[2017-10-08] MEDS: HumaLOG INSULIN (NovoLOG) PER UNIT SC ×4 (09:34→22:00)
[2017-10-08] MEDS: ACETAMINOPHEN 650 MG SUPP PR (12:29)
[2017-10-08 15:27] LABS: PARTIAL THROMBOPLASTIN TIME 67.3 SECONDS (26.8-37.9)
[2017-10-08] MEDS: HEPARIN DRIP 25,000 UNITS in APPROPRIATE DILUENT 1 EA IV (15:45)
[2017-10-08 18:28] LABS: BEDSIDE GLUCOSE 115 MG/DL (83-110)
[2017-10-08] MEDS ORDERED: PROPOFOL 200 MG/20 ML VIAL As Ordered (20:38)
[2017-10-08] MEDS ORDERED: fentaNYL 100 MCG/2 ML INJECTION (J3010) As Ordered (20:38)
[2017-10-08] MEDS ORDERED: LIDOCAINE 2% INJ 100 MG/5 ML SDV (FOR ANES.) As Ordered (21:41)
[2017-10-08] MEDS ORDERED: KETAMINE HCL 200 MG/20 ML VIAL As Ordered (21:42)
[2017-10-08] MEDS ORDERED: MIDAZOLAM INJ 2 MG/2 ML VIAL (J2250) As Ordered (21:44)
[2017-10-08] MEDS: LEVEMIR (INSULIN DETEMIR) 1 UNITS/0.01ML SC (22:00)
[2017-10-08 22:19] LABS: BEDSIDE GLUCOSE 131 MG/DL (83-110)
[2017-10-08] MEDS ORDERED: PERCOCET 5MG/325MG TAB PO (22:45)
[2017-10-08] MEDS ORDERED: ONDANSETRON 4MG/2ML VIAL (J2405) IV (22:45)
[2017-10-08] MEDS ORDERED: fentaNYL 100 MCG/2 ML INJECTION (J3010) IV (22:45)
[2017-10-08] MEDS: LR 1,000 ML IV (22:45)
[2017-10-08] MEDS: traZODone 50 MG TAB PO (23:33)
[2017-10-08 23:58] LABS: PARTIAL THROMBOPLASTIN TIME 77.9 SECONDS (26.8-37.9)
[2017-10-09] MEDS: SIMVASTATIN 40 MG TAB PO ×3 (00:51→07:04)
[2017-10-09] MEDS: PIPERACILLIN/TAZOBACTAM SOD 2.25 GM in D5W MINI-BAG PLUS 50 ML IV ×4 (00:51→21:22)
[2017-10-09] MEDS: MONTELUKAST 10 MG TAB PO ×3 (00:51→07:04)
[2017-10-09] MEDS: PANTOPRAZOLE 40MG TAB (PROTONIX) PO ×3 (00:51→21:00)
[2017-10-09] MEDS: NS 1,000 ML IV (00:52)
[2017-10-09] MEDS: ACETAMINOPHEN 650 MG SUPP PR ×2 (01:55→08:22)
[2017-10-09] MEDS: LORazepam 2 MG/ML VIAL (J2060) IV ×2 (05:20→09:57)
[2017-10-09] MEDS: LABETALOL HCL 100 MG/20 ML VIAL IV ×3 (05:22→18:49)
[2017-10-09] MEDS: SODIUM CHLORIDE 0.9% INJ 10 ML SYR IV ×2 (05:31→17:13)
[2017-10-09 05:42] LABS: ERYTHROCYTE SEDIMENTATION RATE 103 mm/hr (0-20)
[2017-10-09 06:05] LABS: HEMATOCRIT 29.3 % (42.0-52.0); HEMOGLOBIN 8.2 g/dl (13.5-17.5); MEAN CORPUSCULAR HEMOGLOBIN 22.5 pg (27.0-33.0); MEAN CORPUSCULAR VOLUME 80.5 fl (80.0-96.0); PLATELET COUNT, AUTOMATED 176 10^3/uL (150-450); RED BLOOD COUNT 3.64 10^6/uL (4.30-6.10); RED CELL DISTRIBUTION WIDTH 21.1 % (11.5-14.5); WHITE BLOOD COUNT 9.6 10^3/uL (4.0-10.0)
[2017-10-09 06:23] LABS: PARTIAL THROMBOPLASTIN TIME 60.5 SECONDS (26.8-37.9)
[2017-10-09 06:34] LABS: ALBUMIN 2.3 GM/DL (3.2-5.2); ALBUMIN/GLOBULIN RATIO 0.59 (1.00-1.93); ALKALINE PHOSPHATASE 73 U/L (45-117); ALT/SGPT 12 U/L (12-78); ANION GAP 14 MEQ/L (8-16); AST/SGOT 22 U/L (7-37); BILIRUBIN,TOTAL 0.5 MG/DL (0.2-1.0); BLOOD UREA NITROGEN 32 MG/DL (7-18); CALCIUM LEVEL 8.4 MG/DL (8.8-10.2); CARBON DIOXIDE LEVEL 23 MEQ/L (21-32); CHLORIDE LEVEL 114 MEQ/L (98-107); CREATININE FOR GFR 1.91 MG/DL (0.70-1.30); GLOMERULAR FILTRATION RATE 36.9 (>42); GLUCOSE, FASTING 110 MG/DL (70-100); MAGNESIUM LEVEL 2.1 MG/DL (1.8-2.4); POTASSIUM SERUM 3.7 MEQ/L (3.5-5.1); SODIUM LEVEL 151 MEQ/L (136-145); TOTAL PROTEIN 6.2 GM/DL (6.4-8.2)
[2017-10-09 07:06] LABS: C REACTIVE PROTEIN QUANTITATIV 9.53 MG/DL (0.00-0.30)
[2017-10-09] MEDS ORDERED: D5W 1,000 ML IV (07:15)
[2017-10-09] MEDS: BUDESONIDE 0.5 MG/2 ML INHALATION SUSPENSION INH ×2 (07:22→19:49)
[2017-10-09] MEDS: SYMBICORT 160/4.5MCG INHALER 6GM INH ×2 (07:22→19:49)
[2017-10-09] MEDS: HumaLOG INSULIN (NovoLOG) PER UNIT SC ×4 (07:30→21:00)
[2017-10-09] MEDS: MULTIVITAMINS/MINERALS THERAP 1 TAB PO (09:00)
[2017-10-09] MEDS: CLOPIDOGREL 75 MG TAB PO (09:00)
[2017-10-09] MEDS: FINASTERIDE 5 MG TAB PO (09:00)
[2017-10-09] MEDS: SENOKOT S TAB PO (09:00)
[2017-10-09] MEDS: SANTYL OINT 30GM TOP (09:00)
[2017-10-09] MEDS: FEBUXOSTAT 40 MG TABLET (ULORIC) PO (09:00)
[2017-10-09] MEDS: D5W/0.45% SODIUM CHLORIDE 1,000 ML IV ×3 (09:14→21:18)
[2017-10-09 12:07] LABS: BEDSIDE GLUCOSE 139 MG/DL (83-110)
[2017-10-09 12:56] LABS: PARTIAL THROMBOPLASTIN TIME 74.1 SECONDS (26.8-37.9)
[2017-10-09] MEDS: HEPARIN DRIP 25,000 UNITS in APPROPRIATE DILUENT 1 EA IV (13:17)
[2017-10-09 14:00] LABS: ANION GAP 13 MEQ/L (8-16); BLOOD UREA NITROGEN 33 MG/DL (7-18); CALCIUM LEVEL 8.1 MG/DL (8.8-10.2); CARBON DIOXIDE LEVEL 23 MEQ/L (21-32); CHLORIDE LEVEL 112 MEQ/L (98-107); GLOMERULAR FILTRATION RATE 37.1 (>42); POTASSIUM SERUM 3.3 MEQ/L (3.5-5.1); SODIUM LEVEL 148 MEQ/L (136-145)
[2017-10-09 14:07] LABS: GLUCOSE, FASTING 410 MG/DL (70-100)
[2017-10-09 14:26] LABS: BEDSIDE GLUCOSE 120 MG/DL (83-110)
[2017-10-09] MEDS ORDERED: NS 0.45% 1,000 ML IV (15:00)
[2017-10-09] MEDS: HEPARIN 1,000 UNITS/ML 10ML VIAL (FOR RADIOLOGY& DIALYSIS ONLY) XX (17:12)
[2017-10-09 19:14] LABS: INR 1.26
[2017-10-09 19:16] LABS: PARTIAL THROMBOPLASTIN TIME 69.4 SECONDS (26.8-37.9)
[2017-10-09 19:55] LABS: ANION GAP 12 MEQ/L (8-16); BLOOD UREA NITROGEN 9 MG/DL (7-18); CARBON DIOXIDE LEVEL 25 MEQ/L (21-32); CHLORIDE LEVEL 110 MEQ/L (98-107); GLOMERULAR FILTRATION RATE > 60.0 (>42); GLUCOSE, FASTING 128 MG/DL (70-100); POTASSIUM SERUM 3.6 MEQ/L (3.5-5.1); SODIUM LEVEL 147 MEQ/L (136-145)
[2017-10-09] MEDS: LEVEMIR (INSULIN DETEMIR) 1 UNITS/0.01ML SC (21:00)
[2017-10-09] MEDS: APIXABAN 5 MG TAB (ELIQUIS) PO (21:00)
[2017-10-09] MEDS: traZODone 50 MG TAB PO (21:00)
[2017-10-09 21:56] LABS: BEDSIDE GLUCOSE 137 MG/DL (83-110)
[2017-10-09] MEDS: MORPHINE 4 MG/ML 1ML VIAL/SYRINGE (J2270) IV (22:51)
[2017-10-10] MEDS: LORazepam 2 MG/ML VIAL (J2060) IV ×4 (00:36→20:13)
[2017-10-10] MEDS: LABETALOL HCL 100 MG/20 ML VIAL IV ×5 (01:02→23:56)
[2017-10-10] MEDS: PIPERACILLIN/TAZOBACTAM SOD 2.25 GM in D5W MINI-BAG PLUS 50 ML IV ×3 (04:06→22:07)
[2017-10-10] MEDS: SODIUM CHLORIDE 0.9% INJ 10 ML SYR IV ×2 (05:08→15:42)
[2017-10-10 05:16] LABS: HEMATOCRIT 29.9 % (42.0-52.0); HEMOGLOBIN 8.6 g/dl (13.5-17.5); MEAN CORPUSCULAR HEMOGLOBIN 23.2 pg (27.0-33.0); MEAN CORPUSCULAR HGB CONC 28.8 g/dl (32.0-36.5); MEAN CORPUSCULAR VOLUME 80.6 fl (80.0-96.0); PLATELET COUNT, AUTOMATED 169 10^3/uL (150-450); RED BLOOD COUNT 3.71 10^6/uL (4.30-6.10); RED CELL DISTRIBUTION WIDTH 20.9 % (11.5-14.5); WHITE BLOOD COUNT 9.1 10^3/uL (4.0-10.0)
[2017-10-10 05:27] LABS: PARTIAL THROMBOPLASTIN TIME 62.1 SECONDS (26.8-37.9)
[2017-10-10 06:15] LABS: MAGNESIUM LEVEL 1.8 MG/DL (1.8-2.4)
[2017-10-10 06:18] LABS: ANION GAP 5 MEQ/L (8-16); BLOOD UREA NITROGEN 14 MG/DL (7-18); CALCIUM LEVEL 8.8 MG/DL (8.8-10.2); CARBON DIOXIDE LEVEL 30 MEQ/L (21-32); CHLORIDE LEVEL 112 MEQ/L (98-107); CREATININE FOR GFR 1.44 MG/DL (0.70-1.30); GLOMERULAR FILTRATION RATE 51.1 (>42); GLUCOSE, FASTING 118 MG/DL (70-100); POTASSIUM SERUM 3.6 MEQ/L (3.5-5.1); SODIUM LEVEL 147 MEQ/L (136-145)
[2017-10-10] MEDS: BUDESONIDE 0.5 MG/2 ML INHALATION SUSPENSION INH ×2 (07:16→20:00)
[2017-10-10] MEDS: SYMBICORT 160/4.5MCG INHALER 6GM INH ×2 (07:16→20:00)
[2017-10-10] MEDS: HumaLOG INSULIN (NovoLOG) PER UNIT SC ×4 (07:30→21:00)
[2017-10-10] MEDS: HEPARIN SOD (PORCINE) 5000 UNITS/ML VIAL IV (07:33)
[2017-10-10] MEDS: HEPARIN DRIP 25,000 UNITS in APPROPRIATE DILUENT 1 EA IV ×2 (07:33→22:06)
[2017-10-10] MEDS: APIXABAN 5 MG TAB (ELIQUIS) PO ×2 (08:18→21:00)
[2017-10-10] MEDS: SENOKOT S TAB PO (08:19)
[2017-10-10] MEDS: MULTIVITAMINS/MINERALS THERAP 1 TAB PO (08:19)
[2017-10-10] MEDS: FEBUXOSTAT 40 MG TABLET (ULORIC) PO (08:19)
[2017-10-10] MEDS: PANTOPRAZOLE 40MG TAB (PROTONIX) PO ×2 (08:19→21:00)
[2017-10-10] MEDS: CLOPIDOGREL 75 MG TAB PO (08:19)
[2017-10-10] MEDS: FINASTERIDE 5 MG TAB PO (08:19)
[2017-10-10] MEDS: SANTYL OINT 30GM TOP (08:20)
[2017-10-10] MEDS: GABAPENTIN 300 MG CAP PO ×2 (09:00→21:00)
[2017-10-10] MEDS: MORPHINE 4 MG/ML 1ML VIAL/SYRINGE (J2270) IV (11:09)
[2017-10-10] MEDS: D5W/0.45% SODIUM CHLORIDE 1,000 ML IV (11:09)
[2017-10-10 11:44] LABS: BEDSIDE GLUCOSE 130 MG/DL (83-110)
[2017-10-10 14:03] LABS: PARTIAL THROMBOPLASTIN TIME 94.5 SECONDS (26.8-37.9)
[2017-10-10 16:26] LABS: C REACTIVE PROTEIN QUANTITATIV 4.48 MG/DL (0.00-0.30)
[2017-10-10 16:31] LABS: BEDSIDE GLUCOSE 116 MG/DL (83-110)
[2017-10-10] MEDS ORDERED: AMIODARONE HCL 150 MG/100 ML PREMIXED BAG (NEXTERONE) As Ordered (17:14)
[2017-10-10] MEDS: AMIODARONE HCL 150 MG in APPROPRIATE DILUENT 1 EA IV (17:24)
[2017-10-10] MEDS: MAG SULF 1GM/100ML (MAG RUN) 1 GM in APPROPRIATE DILUENT 1 EA IV (17:33)
[2017-10-10] MEDS ORDERED: AMIODARONE HCL 360 MG in APPROPRIATE DILUENT 1 EA IV (17:45)
[2017-10-10] MEDS: D5W 1000 ML IV (17:50)
[2017-10-10] MEDS: AMIODARONE HCL 360 MG in APPROPRIATE DILUENT 1 EA IV (18:29)
[2017-10-10] MEDS ORDERED: DARBEPOETIN 100 MCG/0.5 ML *DIALYSIS* SYRINGE (J0882) IV (19:15)
[2017-10-10] MEDS ORDERED: IRON SUCROSE 100MG 5ML VIAL (J1756 PER 1MG) IV (19:15)
[2017-10-10 19:28] LABS: CK-MB VALUE MASS 1.5 NG/ML (<3.6); CPK CREATINE PHOSPHOKINASE 45 U/L (39-308); MB/CK RELATIVE INDEX 3.33 (< OR =4); TROPONIN I 0.07 NG/ML (< 0.10)
[2017-10-10] MEDS: KCL 20MEQ IN D5W 1000ML 1,000 ML IV (19:57)
[2017-10-10 20:31] LABS: PARTIAL THROMBOPLASTIN TIME 177.2 SECONDS (26.8-37.9)
[2017-10-10] MEDS: SIMVASTATIN 40 MG TAB PO (21:00)
[2017-10-10] MEDS: traZODone 50 MG TAB PO (21:00)
[2017-10-10] MEDS: MONTELUKAST 10 MG TAB PO (21:00)
[2017-10-10] MEDS: LEVEMIR (INSULIN DETEMIR) 1 UNITS/0.01ML SC (21:00)
[2017-10-10 22:26] LABS: BEDSIDE GLUCOSE 128 MG/DL (83-110)
[2017-10-11] MEDS: AMIODARONE HCL 360 MG in APPROPRIATE DILUENT 1 EA IV ×2 (00:16→09:28)
[2017-10-11 00:36] LABS: CK-MB VALUE MASS 1.7 NG/ML (<3.6); CPK CREATINE PHOSPHOKINASE 43 U/L (39-308); MB/CK RELATIVE INDEX 3.95 (< OR =4); TROPONIN I 0.07 NG/ML (< 0.10)
[2017-10-11] MEDS: LORazepam 2 MG/ML VIAL (J2060) IV ×4 (04:05→20:57)
[2017-10-11] MEDS: PIPERACILLIN/TAZOBACTAM SOD 2.25 GM in D5W MINI-BAG PLUS 50 ML IV ×3 (04:27→20:56)
[2017-10-11 04:37] LABS: BASO % 0.5 % (0.0-1.0); EOS # 0.4 10^3/uL (0.0-0.50); EOS % 5.4 % (0.0-3.0); HEMOGLOBIN 8.3 g/dl (13.5-17.5); IMMATURE GRANULOCYTE % 0.7 % (0-3.0); LYMPH # 1.1 10^3/uL (1.5-4.5); LYMPH % 13.5 % (24.0-44.0); MEAN CORPUSCULAR HEMOGLOBIN 23.1 pg (27.0-33.0); MEAN CORPUSCULAR HGB CONC 28.6 g/dl (32.0-36.5); MEAN CORPUSCULAR VOLUME 80.6 fl (80.0-96.0); MONO # 0.7 10^3/uL (0.0-0.8); NEUTROPHILS # 5.9 10^3/uL (1.8-7.7); NEUTROPHILS % 71.9 % (36.0-66.0); PLATELET COUNT, AUTOMATED 164 10^3/uL (150-450); RED CELL DISTRIBUTION WIDTH 21.4 % (11.5-14.5); WHITE BLOOD COUNT 8.2 10^3/uL (4.0-10.0)
[2017-10-11 04:52] LABS: PARTIAL THROMBOPLASTIN TIME 81.4 SECONDS (26.8-37.9)
[2017-10-11] MEDS: SODIUM CHLORIDE 0.9% INJ 10 ML SYR IV ×2 (05:04→16:14)
[2017-10-11] MEDS: LABETALOL HCL 100 MG/20 ML VIAL IV ×4 (05:09→17:51)
[2017-10-11 05:37] LABS: CK-MB VALUE MASS 1.5 NG/ML (<3.6); CPK CREATINE PHOSPHOKINASE 40 U/L (39-308); MB/CK RELATIVE INDEX 3.75 (< OR =4); TROPONIN I 0.06 NG/ML (< 0.10)
[2017-10-11 05:42] LABS: ALBUMIN 2.3 GM/DL (3.2-5.2); ALBUMIN/GLOBULIN RATIO 0.62 (1.00-1.93); ALKALINE PHOSPHATASE 64 U/L (45-117); ALT/SGPT 12 U/L (12-78); ANION GAP 9 MEQ/L (8-16); AST/SGOT 17 U/L (7-37); BILIRUBIN,TOTAL 0.3 MG/DL (0.2-1.0); BLOOD UREA NITROGEN 18 MG/DL (7-18); C REACTIVE PROTEIN QUANTITATIV 3.55 MG/DL (0.00-0.30); CALCIUM LEVEL 8.2 MG/DL (8.8-10.2); CARBON DIOXIDE LEVEL 27 MEQ/L (21-32); CHLORIDE LEVEL 110 MEQ/L (98-107); CREATININE FOR GFR 1.89 MG/DL (0.70-1.30); GLOMERULAR FILTRATION RATE 37.3 (>42); GLUCOSE, FASTING 125 MG/DL (70-100); MAGNESIUM LEVEL 2.1 MG/DL (1.8-2.4); POTASSIUM SERUM 3.4 MEQ/L (3.5-5.1); SODIUM LEVEL 146 MEQ/L (136-145); THYROID STIMULATING HORMONE 0.874 uIU/ML (0.358-3.740)
[2017-10-11] MEDS: BUDESONIDE 0.5 MG/2 ML INHALATION SUSPENSION INH ×2 (07:08→20:00)
[2017-10-11] MEDS: SYMBICORT 160/4.5MCG INHALER 6GM INH ×2 (07:08→20:00)
[2017-10-11] MEDS: HumaLOG INSULIN (NovoLOG) PER UNIT SC ×4 (07:30→20:55)
[2017-10-11] MEDS: MULTIVITAMINS/MINERALS THERAP 1 TAB PO (08:34)
[2017-10-11] MEDS: FEBUXOSTAT 40 MG TABLET (ULORIC) PO (08:34)
[2017-10-11] MEDS: GABAPENTIN 300 MG CAP PO ×2 (08:34→20:57)
[2017-10-11] MEDS: PANTOPRAZOLE 40MG TAB (PROTONIX) PO ×3 (08:34→21:00)
[2017-10-11] MEDS: CLOPIDOGREL 75 MG TAB PO (08:34)
[2017-10-11] MEDS: FINASTERIDE 5 MG TAB PO (08:34)
[2017-10-11] MEDS: SENOKOT S TAB PO (08:34)
[2017-10-11] MEDS: APIXABAN 5 MG TAB (ELIQUIS) PO (08:34)
[2017-10-11] MEDS: SANTYL OINT 30GM TOP (08:35)
[2017-10-11] MEDS: KCL 20MEQ IN D5W 1000ML 1,000 ML IV (08:44)
[2017-10-11] MEDS ORDERED: POTASSIUM CHLORIDE 10% LIQ 20 MEQ/15 ML UDC PO (10:00)
[2017-10-11] MEDS: KCL 10MEQ/100ML SWI (KRUN) 10 MEQ in APPROPRIATE DILUENT 1 EA IV ×2 (10:35→13:05)
[2017-10-11] MEDS: MORPHINE 4 MG/ML 1ML VIAL/SYRINGE (J2270) IV (11:16)
[2017-10-11 11:20] LABS: PARTIAL THROMBOPLASTIN TIME 89.3 SECONDS (26.8-37.9)
[2017-10-11 11:50] LABS: BEDSIDE GLUCOSE 121 MG/DL (83-110)
[2017-10-11] MEDS: HEPARIN DRIP 25,000 UNITS in APPROPRIATE DILUENT 1 EA IV ×2 (13:51→22:54)
[2017-10-11] MEDS: hydrALAZINE INJ 20 MG/ML VIAL IV ×2 (14:02→20:00)
[2017-10-11] MEDS: BISACODYL 10 MG SUPP PR (16:20)
[2017-10-11 16:41] LABS: BEDSIDE GLUCOSE 126 MG/DL (83-110)
[2017-10-11 20:43] LABS: BEDSIDE GLUCOSE 148 MG/DL (83-110)
[2017-10-11] MEDS: LEVEMIR (INSULIN DETEMIR) 1 UNITS/0.01ML SC (20:57)
[2017-10-11] MEDS: MONTELUKAST 10 MG TAB PO ×2 (20:57→21:00)
[2017-10-11] MEDS: traZODone 50 MG TAB PO (20:57)
[2017-10-11] MEDS: SIMVASTATIN 40 MG TAB PO ×2 (20:57→21:00)
[2017-10-12] MEDS: KCL 20MEQ IN D5W 1000ML 1,000 ML IV ×2 (00:55→11:04)
[2017-10-12] MEDS: LABETALOL HCL 100 MG/20 ML VIAL IV ×4 (00:56→18:10)
[2017-10-12] MEDS: hydrALAZINE INJ 20 MG/ML VIAL IV ×4 (01:11→20:00)
[2017-10-12] MEDS: SODIUM CHLORIDE 0.9% INJ 10 ML SYR IV ×2 (05:09→19:34)
[2017-10-12 05:27] LABS: BASO % 0.5 % (0.0-1.0); EOS # 0.3 10^3/uL (0.0-0.50); EOS % 3.9 % (0.0-3.0); HEMATOCRIT 28.3 % (42.0-52.0); HEMOGLOBIN 8.2 g/dl (13.5-17.5); IMMATURE GRANULOCYTE % 0.8 % (0-3.0); LYMPH # 0.8 10^3/uL (1.5-4.5); LYMPH % 9.2 % (24.0-44.0); MEAN CORPUSCULAR HEMOGLOBIN 23.3 pg (27.0-33.0); MEAN CORPUSCULAR VOLUME 80.4 fl (80.0-96.0); MONO # 0.7 10^3/uL (0.0-0.8); MONO % 8.4 % (0.0-5.0); NEUTROPHILS # 6.8 10^3/uL (1.8-7.7); NEUTROPHILS % 77.2 % (36.0-66.0); PLATELET COUNT, AUTOMATED 162 10^3/uL (150-450); RED BLOOD COUNT 3.52 10^6/uL (4.30-6.10); RED CELL DISTRIBUTION WIDTH 21.9 % (11.5-14.5); WHITE BLOOD COUNT 8.7 10^3/uL (4.0-10.0)
[2017-10-12 05:40] LABS: PARTIAL THROMBOPLASTIN TIME 76.7 SECONDS (26.8-37.9)
[2017-10-12 05:49] LABS: ALBUMIN 2.2 GM/DL (3.2-5.2); ALBUMIN/GLOBULIN RATIO 0.59 (1.00-1.93); ALKALINE PHOSPHATASE 61 U/L (45-117); ALT/SGPT 12 U/L (12-78); ANION GAP 8 MEQ/L (8-16); AST/SGOT 18 U/L (7-37); BILIRUBIN,TOTAL 0.3 MG/DL (0.2-1.0); BLOOD UREA NITROGEN 22 MG/DL (7-18); C REACTIVE PROTEIN QUANTITATIV 2.54 MG/DL (0.00-0.30); CALCIUM LEVEL 8.2 MG/DL (8.8-10.2); CARBON DIOXIDE LEVEL 25 MEQ/L (21-32); CHLORIDE LEVEL 107 MEQ/L (98-107); CREATININE FOR GFR 2.21 MG/DL (0.70-1.30); GLOMERULAR FILTRATION RATE 31.1 (>42); GLUCOSE, FASTING 229 MG/DL (70-100); MAGNESIUM LEVEL 1.8 MG/DL (1.8-2.4); POTASSIUM SERUM 4.3 MEQ/L (3.5-5.1); SODIUM LEVEL 140 MEQ/L (136-145); TOTAL PROTEIN 5.9 GM/DL (6.4-8.2)
[2017-10-12] MEDS: MORPHINE 4 MG/ML 1ML VIAL/SYRINGE (J2270) IV (06:18)
[2017-10-12] MEDS: BUDESONIDE 0.5 MG/2 ML INHALATION SUSPENSION INH ×2 (07:12→19:39)
[2017-10-12] MEDS: SYMBICORT 160/4.5MCG INHALER 6GM INH ×2 (07:13→19:39)
[2017-10-12] MEDS: HumaLOG INSULIN (NovoLOG) PER UNIT SC ×4 (08:24→21:00)
[2017-10-12] MEDS: CLOPIDOGREL 75 MG TAB PO (10:32)
[2017-10-12] MEDS: FINASTERIDE 5 MG TAB PO (10:32)
[2017-10-12] MEDS: PANTOPRAZOLE 40MG TAB (PROTONIX) PO ×2 (10:33→21:41)
[2017-10-12] MEDS: SENOKOT S TAB PO (10:33)
[2017-10-12] MEDS: FEBUXOSTAT 40 MG TABLET (ULORIC) PO (10:34)
[2017-10-12] MEDS: MULTIVITAMINS/MINERALS THERAP 1 TAB PO (10:34)
[2017-10-12] MEDS: PIPERACILLIN/TAZOBACTAM SOD 2.25 GM in D5W MINI-BAG PLUS 50 ML IV ×2 (11:03→21:41)
[2017-10-12] MEDS: LORazepam 2 MG/ML VIAL (J2060) IV ×3 (11:13→23:16)
[2017-10-12 13:03] LABS: BEDSIDE GLUCOSE 110 MG/DL (83-110)
[2017-10-12 16:46] LABS: AMMONIA 21 uMOL/L (<32)
[2017-10-12] MEDS: HEPARIN DRIP 25,000 UNITS in APPROPRIATE DILUENT 1 EA IV (18:09)
[2017-10-12 18:40] LABS: BEDSIDE GLUCOSE 117 MG/DL (83-110)
[2017-10-12] MEDS: HEPARIN 1,000 UNITS/ML 10ML VIAL (FOR RADIOLOGY& DIALYSIS ONLY) XX (19:34)
[2017-10-12 20:56] LABS: BEDSIDE GLUCOSE 112 MG/DL (83-110)
[2017-10-12] MEDS: LEVEMIR (INSULIN DETEMIR) 1 UNITS/0.01ML SC (21:41)
[2017-10-12] MEDS: MONTELUKAST 10 MG TAB PO (21:41)
[2017-10-12] MEDS: SIMVASTATIN 40 MG TAB PO (21:41)
[2017-10-12] MEDS: AMIODARONE 200 MG TAB (PACERONE) PO (21:42)
[2017-10-13] MEDS: hydrALAZINE INJ 20 MG/ML VIAL IV ×4 (01:35→21:16)
[2017-10-13] MEDS: KCL 20MEQ IN D5W 1000ML 1,000 ML IV (04:50)
[2017-10-13] MEDS: SODIUM CHLORIDE 0.9% INJ 10 ML SYR IV ×4 (05:15→22:06)
[2017-10-13 05:31] LABS: BASO % 0.4 % (0.0-1.0); EOS # 0.3 10^3/uL (0.0-0.50); EOS % 3.7 % (0.0-3.0); HEMATOCRIT 28.8 % (42.0-52.0); HEMOGLOBIN 8.6 g/dl (13.5-17.5); IMMATURE GRANULOCYTE % 0.8 % (0-3.0); LYMPH # 0.9 10^3/uL (1.5-4.5); LYMPH % 12.6 % (24.0-44.0); MEAN CORPUSCULAR HEMOGLOBIN 23.8 pg (27.0-33.0); MEAN CORPUSCULAR HGB CONC 29.9 g/dl (32.0-36.5); MEAN CORPUSCULAR VOLUME 79.6 fl (80.0-96.0); MONO # 0.7 10^3/uL (0.0-0.8); MONO % 10.2 % (0.0-5.0); NEUTROPHILS # 5.3 10^3/uL (1.8-7.7); NEUTROPHILS % 72.3 % (36.0-66.0); PLATELET COUNT, AUTOMATED 140 10^3/uL (150-450); RED BLOOD COUNT 3.62 10^6/uL (4.30-6.10); RED CELL DISTRIBUTION WIDTH 22.3 % (11.5-14.5); WHITE BLOOD COUNT 7.3 10^3/uL (4.0-10.0)
[2017-10-13 06:12] LABS: ALBUMIN 2.3 GM/DL (3.2-5.2); ALBUMIN/GLOBULIN RATIO 0.61 (1.00-1.93); ALKALINE PHOSPHATASE 65 U/L (45-117); ALT/SGPT 14 U/L (12-78); ANION GAP 9 MEQ/L (8-16); AST/SGOT 17 U/L (7-37); BILIRUBIN,TOTAL 0.5 MG/DL (0.2-1.0); BLOOD UREA NITROGEN 13 MG/DL (7-18); C REACTIVE PROTEIN QUANTITATIV 2.69 MG/DL (0.00-0.30); CALCIUM LEVEL 8.5 MG/DL (8.8-10.2); CARBON DIOXIDE LEVEL 27 MEQ/L (21-32); CHLORIDE LEVEL 107 MEQ/L (98-107); CREATININE FOR GFR 1.65 MG/DL (0.70-1.30); GLOMERULAR FILTRATION RATE 43.6 (>42); GLUCOSE, FASTING 114 MG/DL (70-100); MAGNESIUM LEVEL 1.8 MG/DL (1.8-2.4); POTASSIUM SERUM 3.7 MEQ/L (3.5-5.1); SODIUM LEVEL 143 MEQ/L (136-145); TOTAL PROTEIN 6.1 GM/DL (6.4-8.2)
[2017-10-13] MEDS: LABETALOL HCL 100 MG/20 ML VIAL IV ×3 (06:56→12:32)
[2017-10-13] MEDS: BUDESONIDE 0.5 MG/2 ML INHALATION SUSPENSION INH ×2 (07:43→19:10)
[2017-10-13] MEDS: SYMBICORT 160/4.5MCG INHALER 6GM INH ×2 (07:44→20:00)
[2017-10-13] MEDS: CLOPIDOGREL 75 MG TAB PO (09:28)
[2017-10-13] MEDS: MOM 30ML SUSPENSION UDC PO (09:28)
[2017-10-13] MEDS: FINASTERIDE 5 MG TAB PO (09:28)
[2017-10-13] MEDS: MULTIVITAMINS/MINERALS THERAP 1 TAB PO (09:29)
[2017-10-13] MEDS: SENOKOT S TAB PO (09:30)
[2017-10-13] MEDS: AMIODARONE 200 MG TAB (PACERONE) PO ×2 (09:31→21:16)
[2017-10-13] MEDS: PIPERACILLIN/TAZOBACTAM SOD 2.25 GM in D5W MINI-BAG PLUS 50 ML IV ×2 (09:32→21:12)
[2017-10-13] MEDS: HumaLOG INSULIN (NovoLOG) PER UNIT SC ×4 (09:33→21:00)
[2017-10-13] MEDS: APIXABAN 5 MG TAB (ELIQUIS) PO ×2 (11:10→21:16)
[2017-10-13 11:14] LABS: BEDSIDE GLUCOSE 74 MG/DL (83-110)
[2017-10-13] MEDS: PANTOPRAZOLE 40MG INJ (PROTONIX) (C9113) IV ×2 (12:32→21:12)
[2017-10-13 16:34] LABS: BEDSIDE GLUCOSE 104 MG/DL (83-110)
[2017-10-13] MEDS ORDERED: METOPROLOL TART 25 MG TABLET PO (21:00)
[2017-10-13] MEDS ORDERED: METOPROLOL TART 50 MG TAB PO (21:00)
[2017-10-13] MEDS: LEVEMIR (INSULIN DETEMIR) 1 UNITS/0.01ML SC (21:00)
[2017-10-13 21:01] LABS: BEDSIDE GLUCOSE 102 MG/DL (83-110)
[2017-10-13] MEDS: MORPHINE 4 MG/ML 1ML VIAL/SYRINGE (J2270) IV (21:15)
[2017-10-13] MEDS: METOPROLOL TART 25 MG TABLET PO (21:16)
[2017-10-13] MEDS: MONTELUKAST 10 MG TAB PO (21:17)
[2017-10-13] MEDS: SIMVASTATIN 40 MG TAB PO (21:17)
[2017-10-14] MEDS: SODIUM CHLORIDE 0.9% INJ 10 ML SYR IV ×3 (02:15→18:08)
[2017-10-14] MEDS: hydrALAZINE INJ 20 MG/ML VIAL IV ×4 (02:15→20:00)
[2017-10-14] MEDS: PIPERACILLIN/TAZOBACTAM SOD 2.25 GM in D5W MINI-BAG PLUS 50 ML IV ×2 (06:50→21:24)
[2017-10-14] MEDS: APIXABAN 5 MG TAB (ELIQUIS) PO ×2 (06:50→21:23)
[2017-10-14] MEDS: CLOPIDOGREL 75 MG TAB PO (06:50)
[2017-10-14] MEDS: PANTOPRAZOLE 40MG INJ (PROTONIX) (C9113) IV ×2 (06:50→21:21)
[2017-10-14] MEDS: METOPROLOL TART 25 MG TABLET PO ×2 (06:51→21:23)
[2017-10-14] MEDS: MULTIVITAMINS/MINERALS THERAP 1 TAB PO (06:51)
[2017-10-14] MEDS: FINASTERIDE 5 MG TAB PO (06:51)
[2017-10-14] MEDS: SENOKOT S TAB PO (06:51)
[2017-10-14] MEDS: AMIODARONE 200 MG TAB (PACERONE) PO ×2 (06:51→21:22)
[2017-10-14 06:54] LABS: BASO % 0.4 % (0.0-1.0); EOS # 0.2 10^3/uL (0.0-0.50); EOS % 2.8 % (0.0-3.0); HEMATOCRIT 30.8 % (42.0-52.0); HEMOGLOBIN 8.9 g/dl (13.5-17.5); IMMATURE GRANULOCYTE % 0.7 % (0-3.0); LYMPH # 0.5 10^3/uL (1.5-4.5); LYMPH % 7.1 % (24.0-44.0); MEAN CORPUSCULAR HEMOGLOBIN 23.4 pg (27.0-33.0); MEAN CORPUSCULAR HGB CONC 28.9 g/dl (32.0-36.5); MEAN CORPUSCULAR VOLUME 81.1 fl (80.0-96.0); MONO # 0.7 10^3/uL (0.0-0.8); MONO % 9.2 % (0.0-5.0); NEUTROPHILS # 6.1 10^3/uL (1.8-7.7); NEUTROPHILS % 79.8 % (36.0-66.0); PLATELET COUNT, AUTOMATED 168 10^3/uL (150-450); RED CELL DISTRIBUTION WIDTH 23.3 % (11.5-14.5); WHITE BLOOD COUNT 7.6 10^3/uL (4.0-10.0)
[2017-10-14] MEDS: SYMBICORT 160/4.5MCG INHALER 6GM INH ×2 (08:00→20:00)
[2017-10-14 08:01] LABS: ALBUMIN 2.5 GM/DL (3.2-5.2); ALBUMIN/GLOBULIN RATIO 0.64 (1.00-1.93); ALKALINE PHOSPHATASE 70 U/L (45-117); ALT/SGPT 15 U/L (12-78); ANION GAP 10 MEQ/L (8-16); AST/SGOT 18 U/L (7-37); BILIRUBIN,TOTAL 0.4 MG/DL (0.2-1.0); BLOOD UREA NITROGEN 22 MG/DL (7-18); C REACTIVE PROTEIN QUANTITATIV 2.51 MG/DL (0.00-0.30); CALCIUM LEVEL 8.6 MG/DL (8.8-10.2); CARBON DIOXIDE LEVEL 26 MEQ/L (21-32); CHLORIDE LEVEL 115 MEQ/L (98-107); CREATININE FOR GFR 2.43 MG/DL (0.70-1.30); GLOMERULAR FILTRATION RATE 27.9 (>42); GLUCOSE, FASTING 141 MG/DL (70-100); MAGNESIUM LEVEL 2.2 MG/DL (1.8-2.4); SODIUM LEVEL 151 MEQ/L (136-145); TOTAL PROTEIN 6.4 GM/DL (6.4-8.2)
[2017-10-14] MEDS: ALBUTEROL SULFATE 2.5 MG/0.5 ML INH NEB SOLN INH ×2 (08:48→21:00)
[2017-10-14] MEDS: BUDESONIDE 0.5 MG/2 ML INHALATION SUSPENSION INH ×2 (08:48→21:01)
[2017-10-14] MEDS: HumaLOG INSULIN (NovoLOG) PER UNIT SC ×5 (08:50→21:37)
[2017-10-14 11:47] LABS: BEDSIDE GLUCOSE 117 MG/DL (83-110)
[2017-10-14] MEDS: LORazepam 2 MG/ML VIAL (J2060) IV ×2 (13:52→21:37)
[2017-10-14] MEDS: HEPARIN 1,000 UNITS/ML 10ML VIAL (FOR RADIOLOGY& DIALYSIS ONLY) XX (15:17)
[2017-10-14 17:34] LABS: BEDSIDE GLUCOSE 133 MG/DL (83-110)
[2017-10-14] MEDS: MONTELUKAST 10 MG TAB PO (21:22)
[2017-10-14] MEDS: SIMVASTATIN 40 MG TAB PO (21:23)
[2017-10-14] MEDS ORDERED: PILL CRUSHER/CUTTER 1 EACH XX (21:30)
[2017-10-14 21:38] LABS: BEDSIDE GLUCOSE 134 MG/DL (83-110)
[2017-10-14] MEDS: LEVEMIR (INSULIN DETEMIR) 1 UNITS/0.01ML SC (21:38)
[2017-10-15 01:37] LABS: BEDSIDE GLUCOSE 125 MG/DL (83-110)
[2017-10-15] MEDS: LORazepam 2 MG/ML VIAL (J2060) IV ×5 (02:51→20:14)
[2017-10-15] MEDS: hydrALAZINE INJ 20 MG/ML VIAL IV ×4 (02:52→20:18)
[2017-10-15] MEDS ORDERED: GLUCOSE 4 GM CHEW TABLET PO (04:15)
[2017-10-15] MEDS ORDERED: DEXTROSE 50% 50 ML SYRINGE IV (04:15)
[2017-10-15] MEDS ORDERED: GLUCAGON FOR INJ 1 MG VIAL (J1610) SC (04:15)
[2017-10-15] MEDS: SODIUM CHLORIDE 0.9% INJ 10 ML SYR IV ×2 (05:18→18:00)
[2017-10-15 05:51] LABS: BASO % 0.4 % (0.0-1.0); EOS # 0.2 10^3/uL (0.0-0.50); EOS % 2.8 % (0.0-3.0); HEMATOCRIT 31.6 % (42.0-52.0); HEMOGLOBIN 9.2 g/dl (13.5-17.5); IMMATURE GRANULOCYTE % 0.7 % (0-3.0); LYMPH # 0.8 10^3/uL (1.5-4.5); LYMPH % 11.1 % (24.0-44.0); MEAN CORPUSCULAR HEMOGLOBIN 23.7 pg (27.0-33.0); MEAN CORPUSCULAR HGB CONC 29.1 g/dl (32.0-36.5); MEAN CORPUSCULAR VOLUME 81.2 fl (80.0-96.0); MONO # 0.8 10^3/uL (0.0-0.8); MONO % 11.4 % (0.0-5.0); NEUTROPHILS # 5.5 10^3/uL (1.8-7.7); NEUTROPHILS % 73.6 % (36.0-66.0); PLATELET COUNT, AUTOMATED 168 10^3/uL (150-450); RED BLOOD COUNT 3.89 10^6/uL (4.30-6.10); RED CELL DISTRIBUTION WIDTH 23.9 % (11.5-14.5); WHITE BLOOD COUNT 7.4 10^3/uL (4.0-10.0)
[2017-10-15 06:07] LABS: C REACTIVE PROTEIN QUANTITATIV 1.88 MG/DL (0.00-0.30)
[2017-10-15 06:12] LABS: BEDSIDE GLUCOSE 115 MG/DL (83-110)
[2017-10-15] MEDS: HumaLOG INSULIN (NovoLOG) PER UNIT SC ×3 (06:18→18:00)
[2017-10-15 06:22] LABS: ALBUMIN 2.5 GM/DL (3.2-5.2); ALKALINE PHOSPHATASE 65 U/L (45-117); ALT/SGPT 12 U/L (12-78); ANION GAP 7 MEQ/L (8-16); AST/SGOT 14 U/L (7-37); BILIRUBIN,TOTAL 0.5 MG/DL (0.2-1.0); BLOOD UREA NITROGEN 24 MG/DL (7-18); CALCIUM LEVEL 8.5 MG/DL (8.8-10.2); CARBON DIOXIDE LEVEL 30 MEQ/L (21-32); CHLORIDE LEVEL 111 MEQ/L (98-107); CREATININE FOR GFR 2.41 MG/DL (0.70-1.30); GLOMERULAR FILTRATION RATE 28.2 (>42); GLUCOSE, FASTING 110 MG/DL (70-100); SODIUM LEVEL 148 MEQ/L (136-145); TOTAL PROTEIN 6.7 GM/DL (6.4-8.2)
[2017-10-15] MEDS: BUDESONIDE 0.5 MG/2 ML INHALATION SUSPENSION INH ×2 (07:28→20:05)
[2017-10-15] MEDS: SYMBICORT 160/4.5MCG INHALER 6GM INH ×2 (07:28→20:00)
[2017-10-15] MEDS: METOPROLOL TART 25 MG TABLET PO (08:05)
[2017-10-15] MEDS: MULTIVITAMINS/MINERALS THERAP 1 TAB PO (09:00)
[2017-10-15] MEDS: FINASTERIDE 5 MG TAB PO (09:00)
[2017-10-15] MEDS: APIXABAN 5 MG TAB (ELIQUIS) PO ×2 (09:00→20:18)
[2017-10-15] MEDS: SENOKOT S TAB PO (09:00)
[2017-10-15] MEDS: AMIODARONE 200 MG TAB (PACERONE) PO ×2 (09:00→20:18)
[2017-10-15] MEDS: CLOPIDOGREL 75 MG TAB PO (09:00)
[2017-10-15] MEDS: PANTOPRAZOLE 40MG INJ (PROTONIX) (C9113) IV ×2 (09:21→20:18)
[2017-10-15] MEDS: PIPERACILLIN/TAZOBACTAM SOD 2.25 GM in D5W MINI-BAG PLUS 50 ML IV ×2 (09:22→20:19)
[2017-10-15] MEDS: MORPHINE 4 MG/ML 1ML VIAL/SYRINGE (J2270) IV ×3 (10:18→22:45)
[2017-10-15] MEDS: D5W 1,000 ML IV (12:00)
[2017-10-15 12:10] LABS: BEDSIDE GLUCOSE 106 MG/DL (83-110)
[2017-10-15 18:06] LABS: BEDSIDE GLUCOSE 109 MG/DL (83-110)
[2017-10-15] MEDS: ALBUTEROL SULFATE 2.5 MG/0.5 ML INH NEB SOLN INH (20:05)
[2017-10-15] MEDS: SIMVASTATIN 40 MG TAB PO (20:18)
[2017-10-15] MEDS: MONTELUKAST 10 MG TAB PO (20:18)
[2017-10-15 21:25] LABS: BEDSIDE GLUCOSE 152 MG/DL (83-110)
[2017-10-15] MEDS: LEVEMIR (INSULIN DETEMIR) 1 UNITS/0.01ML SC (21:30)
[2017-10-16 00:12] LABS: BEDSIDE GLUCOSE 135 MG/DL (83-110)
[2017-10-16] MEDS: LORazepam 2 MG/ML VIAL (J2060) IV ×3 (00:27→11:36)
[2017-10-16] MEDS: hydrALAZINE INJ 20 MG/ML VIAL IV ×4 (02:00→20:26)
[2017-10-16] MEDS: SODIUM CHLORIDE 0.9% INJ 10 ML SYR IV ×2 (05:35→18:00)
[2017-10-16 05:47] LABS: BEDSIDE GLUCOSE 142 MG/DL (83-110)
[2017-10-16] MEDS: HumaLOG INSULIN (NovoLOG) PER UNIT SC ×4 (05:49→18:24)
[2017-10-16] MEDS: SYMBICORT 160/4.5MCG INHALER 6GM INH ×2 (08:00→20:00)
[2017-10-16] MEDS: SENOKOT S TAB PO (08:50)
[2017-10-16] MEDS: APIXABAN 5 MG TAB (ELIQUIS) PO ×2 (08:50→21:50)
[2017-10-16] MEDS: CLOPIDOGREL 75 MG TAB PO (08:50)
[2017-10-16] MEDS: AMIODARONE 200 MG TAB (PACERONE) PO ×2 (08:51→21:50)
[2017-10-16] MEDS: FINASTERIDE 5 MG TAB PO (08:51)
[2017-10-16] MEDS: PANTOPRAZOLE 40MG INJ (PROTONIX) (C9113) IV ×2 (08:52→21:50)
[2017-10-16] MEDS: PIPERACILLIN/TAZOBACTAM SOD 2.25 GM in D5W MINI-BAG PLUS 50 ML IV ×2 (08:52→21:47)
[2017-10-16] MEDS: BUDESONIDE 0.5 MG/2 ML INHALATION SUSPENSION INH ×2 (09:05→20:29)
[2017-10-16 09:41] LABS: BASO # 0.1 10^3/uL (0.0-0.2); BASO % 0.7 % (0.0-1.0); EOS # 0.2 10^3/uL (0.0-0.50); EOS % 2.4 % (0.0-3.0); HEMOGLOBIN 8.5 g/dl (13.5-17.5); IMMATURE GRANULOCYTE % 0.6 % (0-3.0); LYMPH % 12.5 % (24.0-44.0); MEAN CORPUSCULAR HEMOGLOBIN 24.1 pg (27.0-33.0); MEAN CORPUSCULAR HGB CONC 29.3 g/dl (32.0-36.5); MEAN CORPUSCULAR VOLUME 82.4 fl (80.0-96.0); MONO # 0.9 10^3/uL (0.0-0.8); MONO % 10.8 % (0.0-5.0); PLATELET COUNT, AUTOMATED 187 10^3/uL (150-450); RED BLOOD COUNT 3.52 10^6/uL (4.30-6.10); RED CELL DISTRIBUTION WIDTH 24.8 % (11.5-14.5); WHITE BLOOD COUNT 8.3 10^3/uL (4.0-10.0)
[2017-10-16 10:02] LABS: ALBUMIN 2.4 GM/DL (3.2-5.2); ALBUMIN/GLOBULIN RATIO 0.65 (1.00-1.93); ALKALINE PHOSPHATASE 63 U/L (45-117); ALT/SGPT 12 U/L (12-78); ANION GAP 10 MEQ/L (8-16); AST/SGOT 11 U/L (7-37); BILIRUBIN,TOTAL 0.4 MG/DL (0.2-1.0); BLOOD UREA NITROGEN 37 MG/DL (7-18); C REACTIVE PROTEIN QUANTITATIV 1.72 MG/DL (0.00-0.30); CALCIUM LEVEL 8.3 MG/DL (8.8-10.2); CARBON DIOXIDE LEVEL 28 MEQ/L (21-32); CHLORIDE LEVEL 115 MEQ/L (98-107); CREATININE FOR GFR 3.28 MG/DL (0.70-1.30); GLOMERULAR FILTRATION RATE 19.7 (>42); GLUCOSE, FASTING 119 MG/DL (70-100); MAGNESIUM LEVEL 2.4 MG/DL (1.8-2.4); POTASSIUM SERUM 4.2 MEQ/L (3.5-5.1); SODIUM LEVEL 153 MEQ/L (136-145); TOTAL PROTEIN 6.1 GM/DL (6.4-8.2)
[2017-10-16] MEDS: HEPARIN 1,000 UNITS/ML 10ML VIAL (FOR RADIOLOGY& DIALYSIS ONLY) XX (10:15)
[2017-10-16 11:29] LABS: BEDSIDE GLUCOSE 130 MG/DL (83-110)
[2017-10-16] MEDS ORDERED: D5W 1,000 ML IV (11:45)
[2017-10-16] MEDS ORDERED: MIDAZOLAM INJ 2 MG/2 ML VIAL (J2250) As Ordered (14:27)
[2017-10-16] MEDS ORDERED: fentaNYL 100 MCG/2 ML INJECTION (J3010) As Ordered (14:27)
[2017-10-16] MEDS ORDERED: BUPIVACAINE HCL 0.5% 30 ML VIAL As Ordered (16:07)
[2017-10-16] MEDS ORDERED: LIDOCAINE 1% SDV INJ 30 ML VIAL As Ordered (16:07)
[2017-10-16] MEDS ORDERED: KETAMINE HCL 200 MG/20 ML VIAL As Ordered (16:21)
[2017-10-16] MEDS ORDERED: GLYCOPYRROLATE INJ 0.2 MG/ML 2 ML VIAL As Ordered (16:29)
[2017-10-16] MEDS ORDERED: fentaNYL 100 MCG/2 ML INJECTION (J3010) IV (17:30)
[2017-10-16] MEDS: NS 1,000 ML IV (17:30)
[2017-10-16] MEDS ORDERED: ONDANSETRON 4MG/2ML VIAL (J2405) IV (17:30)
[2017-10-16 18:22] LABS: BEDSIDE GLUCOSE 148 MG/DL (83-110)
[2017-10-16 19:10] LABS: ANION GAP 12 MEQ/L (8-16); BLOOD UREA NITROGEN 14 MG/DL (7-18); CALCIUM LEVEL 9.2 MG/DL (8.8-10.2); CARBON DIOXIDE LEVEL 25 MEQ/L (21-32); CHLORIDE LEVEL 104 MEQ/L (98-107); CREATININE FOR GFR 1.98 MG/DL (0.70-1.30); GLOMERULAR FILTRATION RATE 35.4 (>42); GLUCOSE, FASTING 147 MG/DL (70-100); POTASSIUM SERUM 4.5 MEQ/L (3.5-5.1); SODIUM LEVEL 141 MEQ/L (136-145)
[2017-10-16 21:28] LABS: BEDSIDE GLUCOSE 118 MG/DL (83-110)
[2017-10-16] MEDS: LEVEMIR (INSULIN DETEMIR) 1 UNITS/0.01ML SC (21:49)
[2017-10-16] MEDS: SIMVASTATIN 40 MG TAB PO (21:49)
[2017-10-16] MEDS: MONTELUKAST 10 MG TAB PO (21:49)
[2017-10-17 00:24] LABS: BEDSIDE GLUCOSE 156 MG/DL (83-110)
[2017-10-17] MEDS: HumaLOG INSULIN (NovoLOG) PER UNIT SC ×2 (00:32→06:04)
[2017-10-17] MEDS ORDERED: AMIODARONE 150MG/3ML INJ (J0282) IVP (01:05)
[2017-10-17] MEDS: DILUENT IV (01:44)
[2017-10-17] MEDS: AMIODARONE HCL IV (01:44)
[2017-10-17] MEDS: MORPHINE 4 MG/ML 1ML VIAL/SYRINGE (J2270) IV ×3 (02:09→09:54)
[2017-10-17] MEDS: hydrALAZINE INJ 20 MG/ML VIAL IV (02:14)
[2017-10-17] MEDS: AMIODARONE HCL 360 MG in APPROPRIATE DILUENT 1 EA IV (02:20)
[2017-10-17 05:54] LABS: BEDSIDE GLUCOSE 220 MG/DL (83-110)
[2017-10-17 05:59] LABS: BASO % 0.2 % (0.0-1.0); EOS % 0.1 % (0.0-3.0); HEMATOCRIT 29.3 % (42.0-52.0); HEMOGLOBIN 8.6 g/dl (13.5-17.5); IMMATURE GRANULOCYTE % 1.1 % (0-3.0); LYMPH # 0.6 10^3/uL (1.5-4.5); LYMPH % 4.5 % (24.0-44.0); MEAN CORPUSCULAR HEMOGLOBIN 24.4 pg (27.0-33.0); MEAN CORPUSCULAR HGB CONC 29.4 g/dl (32.0-36.5); MONO # 0.8 10^3/uL (0.0-0.8); MONO % 5.7 % (0.0-5.0); NEUTROPHILS # 11.7 10^3/uL (1.8-7.7); NEUTROPHILS % 88.4 % (36.0-66.0); PLATELET COUNT, AUTOMATED 261 10^3/uL (150-450); RED BLOOD COUNT 3.53 10^6/uL (4.30-6.10); RED CELL DISTRIBUTION WIDTH 25.2 % (11.5-14.5); WHITE BLOOD COUNT 13.2 10^3/uL (4.0-10.0)
[2017-10-17] MEDS: SODIUM CHLORIDE 0.9% INJ 10 ML SYR IV ×2 (06:05→09:55)
[2017-10-17 06:29] LABS: ALBUMIN 2.5 GM/DL (3.2-5.2); ALBUMIN/GLOBULIN RATIO 0.64 (1.00-1.93); ALKALINE PHOSPHATASE 110 U/L (45-117); ALT/SGPT 165 U/L (12-78); ANION GAP 11 MEQ/L (8-16); AST/SGOT 385 U/L (7-37); BILIRUBIN,TOTAL 0.6 MG/DL (0.2-1.0); BLOOD UREA NITROGEN 31 MG/DL (7-18); C REACTIVE PROTEIN QUANTITATIV 3.01 MG/DL (0.00-0.30); CARBON DIOXIDE LEVEL 26 MEQ/L (21-32); CHLORIDE LEVEL 105 MEQ/L (98-107); CREATININE FOR GFR 3.82 MG/DL (0.70-1.30); GLOMERULAR FILTRATION RATE 16.6 (>42); GLUCOSE, FASTING 215 MG/DL (70-100); MAGNESIUM LEVEL 2.2 MG/DL (1.8-2.4); POTASSIUM SERUM 4.9 MEQ/L (3.5-5.1); SODIUM LEVEL 142 MEQ/L (136-145); TOTAL PROTEIN 6.4 GM/DL (6.4-8.2)
[2017-10-17] MEDS: SYMBICORT 160/4.5MCG INHALER 6GM INH (08:00)
[2017-10-17] MEDS: BUDESONIDE 0.5 MG/2 ML INHALATION SUSPENSION INH (08:00)
[2017-10-17] MEDS: PIPERACILLIN/TAZOBACTAM SOD 2.25 GM in D5W MINI-BAG PLUS 50 ML IV (10:16)
[2017-10-17] MEDS: SCOPOLAMINE 1MG TRANSDERMAL PATCH TOP (10:21)
== END 2017-10-17 12:25 | disposition expired | DRG 239 ==
LOC: M ED 15:12 → M ED INP 18:04 → M PCU 20:47
PROC: 0Y6H0Z3 Detachment at Right Lower Leg, Low, Open Approach (ICD-10-PCS; principal; 2017-10-08 17:30)
PROC: 0Y6C0Z2 Detachment at Right Upper Leg, Mid, Open Approach (ICD-10-PCS; 2017-10-08 17:30)
PROC: 0JH63XZ Insertion of Tunneled Vascular Access Device into Chest Subcutaneous Tissue and Fascia, Percutaneous Approach (ICD-10-PCS; 2017-10-08 21:46)
PROC: 5A1D70Z Performance of Urinary Filtration, Intermittent, Less than 6 Hours Per Day (ICD-10-PCS; 2017-10-08 21:46)
PROC: 02HV33Z Insertion of Infusion Device into Superior Vena Cava, Percutaneous Approach (ICD-10-PCS; 2017-10-08 21:46)
DX: E11.52 Type 2 diabetes mellitus with diabetic peripheral angiopathy with gangrene (principal); G93.40 Encephalopathy, unspecified; A41.9 Sepsis, unspecified organism; R65.20 Severe sepsis without septic shock; L03.115 Cellulitis of right lower limb; N18.4 Chronic kidney disease, stage 4 (severe); N17.9 Acute kidney failure, unspecified; M86.171 Other acute osteomyelitis, right ankle and foot; E87.0 Hyperosmolality and hypernatremia; E46 Unspecified protein-calorie malnutrition; E11.621 Type 2 diabetes mellitus with foot ulcer; E11.622 Type 2 diabetes mellitus with other skin ulcer; I48.91 Unspecified atrial fibrillation; I25.10 Atherosclerotic heart disease of native coronary artery without angina pectoris; Z79.01 Long term (current) use of anticoagulants; Z86.711 Personal history of pulmonary embolism; Z86.718 Personal history of other venous thrombosis and embolism; F41.9 Anxiety disorder, unspecified; F32.9 Major depressive disorder, single episode, unspecified; Z89.612 Acquired absence of left leg above knee; E11.649 Type 2 diabetes mellitus with hypoglycemia without coma; Z51.5 Encounter for palliative care; Z79.899 Other long term (current) drug therapy; Z79.4 Long term (current) use of insulin; Z88.8 Allergy status to other drugs, medicaments and biological substances; E78.5 Hyperlipidemia, unspecified; N40.0 Benign prostatic hyperplasia without lower urinary tract symptoms; J44.9 Chronic obstructive pulmonary disease, unspecified; E66.9 Obesity, unspecified; G47.33 Obstructive sleep apnea (adult) (pediatric); E11.40 Type 2 diabetes mellitus with diabetic neuropathy, unspecified; E11.21 Type 2 diabetes mellitus with diabetic nephropathy; M19.90 Unspecified osteoarthritis, unspecified site; K21.9 Gastro-esophageal reflux disease without esophagitis; M10.9 Gout, unspecified; B96.29 Other Escherichia coli [E. coli] as the cause of diseases classified elsewhere; B96.4 Proteus (mirabilis) (morganii) as the cause of diseases classified elsewhere; B95.61 Methicillin susceptible Staphylococcus aureus infection as the cause of diseases classified elsewhere; D50.9 Iron deficiency anemia, unspecified; E87.6 Hypokalemia; D63.1 Anemia in chronic kidney disease

== ENCOUNTER → 2017-10-02 | Outpatient (REF) ==
[2017-10-02 13:20] LABS: HEMATOCRIT 35.5 % (42.0-52.0); HEMOGLOBIN 10.6 g/dl (13.5-17.5); MEAN CORPUSCULAR HEMOGLOBIN 22.7 pg (27.0-33.0); MEAN CORPUSCULAR HGB CONC 29.9 g/dl (32.0-36.5); MEAN CORPUSCULAR VOLUME 76.2 fl (80.0-96.0); PLATELET COUNT, AUTOMATED 296 10^3/uL (150-450); RED BLOOD COUNT 4.66 10^6/uL (4.30-6.10); RED CELL DISTRIBUTION WIDTH 18.8 % (11.5-14.5); WHITE BLOOD COUNT 15.8 10^3/uL (4.0-10.0)
[2017-10-02 14:29] LABS: ALBUMIN 2.9 GM/DL (3.2-5.2); ANION GAP 8 MEQ/L (8-16); BLOOD UREA NITROGEN 128 MG/DL (7-18); CALCIUM LEVEL 9.6 MG/DL (8.8-10.2); CARBON DIOXIDE LEVEL 32 MEQ/L (21-32); CHLORIDE LEVEL 94 MEQ/L (98-107); GLOMERULAR FILTRATION RATE 23.7 (>42); GLUCOSE, FASTING 126 MG/DL (70-100); MAGNESIUM LEVEL 2.4 MG/DL (1.8-2.4); PHOSPHORUS LEVEL 4.4 MG/DL (2.5-4.9); SODIUM LEVEL 134 MEQ/L (136-145); URIC ACID 9.2 MG/DL (3.5-7.2)
== END ==
LOC: SKLAB3 11:08
DX: E11.9 Type 2 diabetes mellitus without complications (principal)